=== PATIENT | female | born 1945 | race Caucasian/White ===

== ENCOUNTER → 2016-09-20 | Day surgery (SDC) | payer MEDICARE, OTHER ==
[~2016-09-20] VITALS: Ht 162.6 cm; Wt 74.1 kg
[~2016-09-20] MED LIST: *MEPERIDINE 25 MG INJ VIAL PERIprocedural Use ONLY ONE; ACETAMINOPHEN 1000 MG/100 ML VIAL IV ONE; ACETAMINOPHEN/HYDROcodone 325 MG/5 MG TAB PO PRN; BELLADONNA ALKALOIDS/OPIUM 60 MG SUPP RECTAL PRN; CIPROFLOXACIN/DEXT 400 MG/200 ML IV SCH; FAMOTIDINE 20 MG/2 ML VIAL IV ONE; HYDR-3534 PO; INSULIN HUMAN REGULAR 1,000 UNITS/10 ML VIAL SQ PRN; IOHEXOL 350 MG/ML 100 ML BTL (for RAD DIAG) OTHER ONE; LACTATED RINGER'S 1000 ML IV SCH; METOPROLOL TARTRATE 25 MG TAB PO PRN; MIDAZOLAM HCL 2 MG/2 ML VIAL ONE; MORPHINE SULFATE 4 MG/ML INJ IV PRN; ONDANSETRON HCL 4 MG/2 ML VIAL IV PUSH ONE; ONDANSETRON HCL 4 MG/2 ML VIAL IV PUSH PRN; PROPOFOL 200 MG/20 ML AMP IV ONE; SODIUM CHLORID 0.9% 500 ML IV SCH
[2016-09-20 07:38] VITALS: BP 119/77; PULSE 76; RESP 18; TEMP 98.6; O2SAT 96
--- NOTE | 2016-09-20 09:57 | PD.OP ---
Operative Report Date of Surgery: Sep 20, 2016 Preoperative Diagnosis: Stage IV Endometrial Cancer with right hydro and retained right ureteral stent Postoperative Diagnosis: Same Procedure: Cystoscopy; Right Retrograde Study Anesthesia: General LMA Surgeon: Wolfgang West Tank Car Loader(s): None Resident Surgeon: None Operation and Findings: 71-year-old female with history of stage IV endometrial cancer with history of right hydronephrosis and obstruction due to tumor compression. Patient with history of right ureteral stent placed back in May 2016 and is here to undergo cystoscopy with right double-J stent change. Risk and benefits were discussed preoperatively and she was willing to proceed. Patient was brought to operating room identify myself as Karan Mosquera. She was placed in dorsal lithotomy position, prepped and draped in usual sterile fashion, received preprocedure antibiotics, and general LMA anesthesia was administered. 22 Wallisian cystoscope was inserted in the bladder. Alfaro cystoscopy demonstrated what appeared to be tumor growth near the area of the trigone with bullous edema around the right ureteral orifice with the right double-J stent in place. An alligator grasper was then used to pull the stent out to the urethral meatus and a 0.35 sensor wire was then passed through the stent. 5 Wallisian opening catheter was then slid over the wire and a retrograde study was performed. Contrast was noted to drain from the ureter but contrast within the collecting system was not draining promptly. Decision was then made to change out the stent and a new 22 cm 6 Wallisian right double-J stent was placed with a good curl in the kidney and a good curl in the bladder. The bladder was evacuated and she was transferred to recovery stable condition. She will obtain a CAT scan next Saturday to evaluate the disease process and she'll follow -up in the clinic after that. Wolfgang West DO Sep 20, 2016 09:57
[2016-09-20 11:05] VITALS: BP 106/66; PULSE 71; RESP 20; TEMP 97.5; O2SAT 95
--- NOTE | 2016-09-20 14:33 | EKG ---
Date Performed: 09/20/2016 Time Performed: 07:25:49 PTAGE: 71 years EKG: Sinus rhythm PATTERN CONSISTENT WITH PULMONARY DISEASE LEFT ANTERIOR FASCICULAR BLOCK ABNORMAL ECG Compared to pr ior tracing no significant change PREVIOUS TRACING : 08/19/2015 15.52 DOCTOR: Javad Zhang Interpretating Date/Time 09/20/2016 14:32:40
== END | disposition home or self-care (01) ==
LOC: HEND 06:47
PROVIDERS: ATTEND Urology
DX: N13.30 Unspecified hydronephrosis (principal); C54.1 Malignant neoplasm of endometrium; R94.31 Abnormal electrocardiogram [ECG] [EKG]
CPT/HCPCS: 00910; 52332; 74420; 93005; C1769; J0131; J0744; J2175; J2250; J2405; J7120; Q9967; J3010

== ENCOUNTER 2016-11-10 16:48 | Emergency (ER) | payer MEDICARE, MEDICAID ==
[~2016-11-10] VITALS: Ht 162.6 cm; Wt 74.0 kg
[2016-11-10 17:02] VITALS: BP 141/79; PULSE 89; RESP 16; TEMP 98.9; O2SAT 97
[2016-11-10] MEDS ORDERED: SODIUM CHLORIDE 0.9% FLUSH 10 ML FLUSH IV FLUSH PRN (17:15)
[2016-11-10 17:20] VITALS: BP 136/75; PULSE 81; RESP 16; O2SAT 97
--- NOTE | 2016-11-10 17:23 | PD ---
HPI Chief Complaint: Pain: Acute or Chronic Time Seen by Provider: 17:15 Travel History International Travel<30 days: No Contact w/Intl Traveler<30days: No Traveled to known affect area: No History of Present Illness HPI 71 year old female presents to the emergency department for evaluation of increasing abdominal pain over the past three days. She has history of stage IV uterine papillary serous carcinoma, oncologist is Dr. Horn. Patient states that she was on Neulasta previously and was concerned of possible splenic rupture which could be a side effect of Neulasta. She states she wound up going back on it and recently stopped it approximately 2 weeks ago. She states that she has had worsening left upper quadrant pain. However, she states it will traveled throughout the abdomen. She also reports increased shortness of breath that started 3 days ago. She denies any chest pain. No fevers. She is currently on chemotherapy, last chemotherapy was 5 weeks ago. She states she has no other medical problems and takes no prescribed medications. According to the chart, when I looked at previous imaging, she did have bilateral pulmonary embolisms back in 2015. She is not currently on any anticoagulants. Patient states that she does not typically have much pain associated with her cancer. Patient is concerned of possible splenic rupture. Patient does report chronic swelling of the right lower extremity, but not the left extremity PFSH Past Medical History Arthritis: No Heart Rhythm Problems: No Cancer: Yes (ENDOMETRIAL ) Cardiovascular Problems: No High Cholesterol: No Chemotherapy: Yes Cerebrovascular Accident: No Diabetes: No Diminished Hearing: No Endocrine: No Genitourinary: Yes (right ureter obst, STENT PAIN WITH AMBULATION) Hepatitis: Yes (HEPATITIS B) Hiatal Hernia: No Immune Disorder: No Musculoskeletal: Yes (HERNIATED DISCS, RT NECK/SHOULDER PAIN) Neurologic: No Psychiatric: No Reproductive: Yes (ENDOMETRIAL TUMOR) Respiratory: No Immunizations Current: Yes Migraines: No Seizures: No Thyroid Disease: No ?: Not Menopausal: Yes : 3 Para: 1 Miscarriage: 0 : 2 Past Surgical History AICD: No Body Medical Devices: RIGHT CHEST PORT Cardiac Surgery: No Section: Yes (X 1) Ear Surgery: No Endocrine Surgery: No Eye Surgery: No Genitourinary Surgery: Yes (R NEPHROSTOMY ) Gynecologic Surgery: Yes (C SECTION. BENIGN TUMOR REMOVED FROM LEFT BREAST) Joint Replacement: No Oral Surgery: Yes (TONSILLECTOMY) Pacemaker: No Thoracic Surgery: No Tonsillectomy: Yes Other Surgery: Yes (RHINOPLASTY) Social History Alcohol Use: No Tobacco Use: No Substance Use: No Allergies-Medications (Allergen,Severity, Reaction): Coded Allergies: Latex (Verified Allergy, Severe, hives, 11/10/16) Penicillin (Verified Allergy, Severe, Anaphylaxis, 11/10/16) Pentothal (Verified Allergy, Severe, SODIUM PENTOTHAL; COULDN'T WAKE UP, ) Reported Meds & Prescriptions Reported Meds & Active Scripts Active No Active Prescriptions or Reported Medications Review of Systems Except as stated in HPI: all other systems reviewed are Neg Physical Exam Narrative GENERAL: Well-nourished, well-developed female patient, afebrile. SKIN: Focused skin assessment warm/dry. HEAD: Normocephalic. Atraumatic. EYES: No scleral icterus. No injection or drainage. NECK: Supple, trachea midline. No JVD or lymphadenopathy. CARDIOVASCULAR: Regular rate and rhythm without murmurs, gallops, or rubs. RESPIRATORY: Breath sounds equal bilaterally. No accessory muscle use. Lungs sounds are clear to auscultation. GASTROINTESTINAL: Abdomen soft and nondistended. Patient has diffuse tenderness throughout the abdomen. MUSCULOSKELETAL: No cyanosis. Patient has 2+ lower extremity edema to the right lower extremity. BACK: Nontender without obvious deformity. No CVA tenderness. Data Data Last Documented VS Vital Signs Date Time Temp Pulse Resp B/P Pulse Ox O2 Delivery O2 Flow Rate FiO2 11/10/16 18:50 87 24 117/78 96 Room Air 11/10/16 17:02 98.9 Orders Complete Blood Count With Diff (11/10/16 17:11) Comprehensive Metabolic Panel (11/10/16 17:) Lipase (11/10/16 17:11) Prothrombin Time / Inr (Pt) (11/10/16:) Act Partial Throm Time (Ptt) (11/10/16 17:11) Urinalysis - C+S If Indicated (11/10/16 17:11) Ct Abd/Pel W Iv Contrast(Rout) (11/10/16 17:11) Iv Access Insert/Monitor (11/10/16 17:11) Ecg Monitoring (11/10/16 17:11) Oximetry (5/13/17 17:11) Sodium Chloride 0.9% Flush (Ns Flush) (11/10/16 17:15) Electrocardiogram (11/10/16 17:11) Creatine Kinase (Cpk) (11/10/16 17:11) Troponin I (11/10/16 17:11) Ct Pulmonary Angiogram (11/10/16 ) Us Leg Venous Doppler (11/10/16 ) Iohexol 350 Inj (Omnipaque 350 Inj) (11/10/16 19:38) Labs Laboratory Tests Test 11/10/16 11/10/16 17:18 17:39 White Blood Count 4.5 TH/MM3 Red Blood Count 3.77 MIL/MM3 Hemoglobin 12.2 GM/DL Hematocrit 35.6 % Mean Corpuscular Volume 94.3 FL Mean Corpuscular Hemoglobin 32.3 PG Mean Corpuscular Hemoglobin 34.3 % Concent Red Cell Distribution Width 16.2 % Platelet Count 104 TH/MM3 Mean Platelet Volume 7.5 FL Neutrophils (%) (Auto) 69.2 % Lymphocytes (%) (Auto) 18.9 % Monocytes (%) (Auto) 10.9 % Eosinophils (%) (Auto) 0.4 % Basophils (%) (Auto) 0.6 % Neutrophils # (Auto) 3.1 TH/MM3 Lymphocytes # (Auto) 0.9 TH/MM3 Monocytes # (Auto) 0.5 TH/MM3 Eosinophils # (Auto) 0.0 TH/MM3 Basophils # (Auto) 0.0 TH/MM3 CBC Comment DIFF FINAL Differential Comment Prothrombin Time 10.8 SEC Prothromb Time International 1.0 RATIO Ratio Activated Partial 27.7 SEC Thromboplast Time Sodium Level 140 MEQ/L Potassium Level 3.9 MEQ/L Chloride Level 105 MEQ/L Carbon Dioxide Level 26.4 MEQ/L Anion Gap 9 MEQ/L Blood Urea Nitrogen 9 MG/DL Creatinine 0.81 MG/DL Estimat Glomerular Filtration 70 ML/MIN Rate Random Glucose 84 MG/DL Calcium Level 9.1 MG/DL Total Bilirubin 0.5 MG/DL Aspartate Amino Transf 21 U/L (AST/SGOT) Alanine Aminotransferase 23 U/L (ALT/SGPT) Alkaline Phosphatase 55 U/L Total Creatine Kinase 164 U/L Troponin I LESS THAN 0.02 NG/ML Total Protein 7.1 GM/DL Albumin 3.7 GM/DL Lipase 89 U/L Urine Color LIGHT-YELLOW Urine Turbidity CLEAR Urine pH 5.0 Urine Specific Edwards 1.008 Urine Protein TRACE mg/dL Urine Glucose (UA) NEG mg/dL Urine Ketones 40 mg/dL Urine Occult Blood SMALL Urine Nitrite NEG Urine Bilirubin NEG Urine Urobilinogen LESS THAN 2.0 MG/DL Urine Leukocyte Esterase MOD Urine RBC 4 /hpf Urine WBC 5 /hpf Urine Squamous Epithelial <1 /hpf Cells Urine Mucus FEW /lpf Microscopic Urinalysis Comment CULT NOT INDICATED MDM Medical Decision Making Medical Screen Exam Complete: Yes Emergency Medical Condition: Yes Medical Record Reviewed: Yes Interpretation(s) US venous doppler of the right lower extremity - CONCLUSION: No evidence of deep venous thrombosis within the right lower extremity. CTPA - CONCLUSION: 1. No evidence of pulmonary embolism. 2. Calcified granulomas within both lungs as well as calcified hilar lymph nodes bilaterally. 3. Degenerative changes and mild scoliosis of the thoracic spine. CT abdomen/pelvis - CONCLUSION: 1. Interval development of uretero pelvocaliectasis on the left without definite calcified obstructing calculus identified within the left distal ureter. 2. Internal ureteral stent is noted on the right with some residual uretero pelvocaliectasis noted on the right. 3. Enlarged uterus with thickened endometrium consistent with patient's known endometrial carcinoma. 4. Apparent thickening of the posterior wall of the urinary bladder which is indeterminate. Cystoscopy would be helpful to rule out bladder wall neoplasm, if clinically indicated. 5. Uncomplicated colonic diverticulosis. 6. Degenerative changes throughout the lumbar spine. Differential Diagnosis Endometrial cancer versus DVT versus PE versus diverticulitis versus splenic injury Narrative Course 71-year-old female who is currently on chemotherapy for endometrial cancer presents to the emergency department for evaluation of shortness of breath and abdominal pain that has been worsening over the past 3 days. She also has unilateral swelling to the right lower extremity. EKG, CBC, CMP, lipase, CK, troponin, PT, PTT/INR, UA are ordered and pending. CT of the abdomen/pelvis with IV contrast and CT pulmonary angiogram are ordered and pending. Ultrasound of the right leg venous Doppler is ordered and pending. Patient declines pain medication at this time. EKG shows sinus rhythm, heart rate 78, no acute ST changes. CBC shows no acute abnormality. CMP shows no acute abnormality. Lipase is 89. CK is 164. Troponin is less than 0.02. Coags are unremarkable. UA shows moderate leukocyte esterase, 4 RBC, [address] abdomen/pelvis shows interval development of uretero pelvocaliectasis on the left without definite calcified obstructing calculus identified within the left distal ureter; internal ureteral stent is noted on the right with some residual uretero pelvocaliectasis noted on the right; enlarged uterus with thickened endometrium consistent with patient's known endometrial carcinoma; apparent thickening of the posterior wall of the urinary bladder which is indeterminate; Cystoscopy would be helpful to rule out bladder wall neoplasm, if clinically indicated; uncomplicated colonic diverticulosis; degenerative changes throughout the lumbar spine. CT pulmonary angiogram shows no evidence of pulmonary embolism; calcified granulomas within both lungs as well as calcified hilar lymph nodes bilaterally; generative changes and mild scoliosis of the thoracic spine. US right leg is negative for DVT. I discussed the results and imaging results with my attending physician, Dr. Smith. We reviewed the imaging and compared with previous imaging. Dr. Smith believes the patient is stable for outpatient follow-up. Discussed with the patient who verbalizes agreement. I gave the patient a copy of the CT report. The patient will be discharged short-term prescription for Lortab for pain. I instructed her to call on Saturday to Dr. Horn and her urologist, Dr. West, notified them of the imaging results. She verbalizes agreement. The patient was discharged in stable condition with instructions, including return instructions and follow up instructions. Diagnosis Primary Impression: Pelvicaliectasis Additional Impression: Abdominal pain Qualified Code: R10.12 - Left upper quadrant pain Referrals: Ami Horn MD 2 days Wolfgang West DO 2 days Patient Instructions: Abdominal Pain (ED), General Instructions, Narcotic given in the ED Additional Instructions: Follow up with Dr. West and Dr. Horn. Return to the emergency department for any acute, worsening of symptoms. Med/Other Pt SpecificInfo: Prescription(s) given Scripts Hydrocodone-Acetaminophen (Lortab)7.5-325 Mg Tab1 Tab PO Q6H PRN (PAIN) #20 TAB Ref 0 Prov:Brent Wahl MD 11/10/16 Disposition: 01 DISCHARGE HOME Condition: Stable Zuhair,Maira GARCIA November 10, 2016 17:23
[2016-11-10 17:32] LABS: AUTOMATED NEUTROPHIL # 3.1 TH/MM3 (1.8-7.7); BASOPHIL % 0.6 % (0.0-2.0); EOSINOPHIL % 0.4 % (0.0-4.0); HEMATOCRIT 35.6 % (35.0-46.0); HEMO FLAGS DIFF FINAL; LYMPH % 18.9 % (9.0-44.0); LYMPHOCYTE # 0.9 TH/MM3 (1.0-4.8); MEAN CELL VOLUME 94.3 FL (80.0-100.0); MEAN CORPUSCULAR HEMOGLOBIN 32.3 PG (27.0-34.0); MEAN CORPUSCULAR HGB CONC 34.3 % (32.0-36.0); MONO % 10.9 % (0.0-8.0); NEUT % 69.2 % (16.0-70.0); PLATELET COUNT 104 TH/MM3 (150-450); RED BLOOD COUNT 3.77 MIL/MM3 (4.00-5.30); RED CELL DISTRIBUTION WIDTH 16.2 % (11.6-17.2); WHITE BLOOD COUNT 4.5 TH/MM3 (4.0-11.0)
[2016-11-10 17:46] LABS: APTT (PATIENT) 27.7 SEC (24.3-30.1); PROTHROMBIN TIME - PATIENT 10.8 SEC (9.8-11.6)
[2016-11-10 17:59] LABS: ALT (GPT) 23 U/L (10-53); ANION GAP 9 MEQ/L (5-15); AST (GOT) 21 U/L (15-37); BICARBONATE 26.4 MEQ/L (21.0-32.0); BLOOD UREA NITROGEN 9 MG/DL (7-18); CHLORIDE 105 MEQ/L (98-107); GLOMERULAR FILTRATION RATE 70 ML/MIN (>89); POTASSIUM 3.9 MEQ/L (3.5-5.1); SODIUM (NA) 140 MEQ/L (136-145)
[2016-11-10 18:10] LABS: BLOOD, URINE SMALL (NEG); GLUCOSE,URINE NEG (NEG); KETONE, URINE 40 mg/dL (NEG); MUCUS URINE FEW /lpf (OCC); NITRITE,URINE NEG (NEG); URINE COLOR LIGHT-YELLOW (YELLW/STRAW)
[2016-11-10 18:11] LABS: COMMENT (UR) CULT NOT INDICATED; CULTURE IF INDICATED CULT NOT INDICATED; SQUAMOUS EPITHELIAL CELL URINE <1 /hpf (0-5)
[2016-11-10 18:14] LABS: ALKALINE PHOSPHATASE 55 U/L (45-117); CREATINE KINASE 164 U/L (26-192); TOTAL BILIRUBIN ADULT 0.5 MG/DL (0.2-1.0)
--- NOTE | 2016-11-10 18:40 | RADRPT ---
EXAM DATE/TIME: 11/10/2016 18:12 [facility] COMPARISON: No previous studies available for comparison. EXTERNAL COMPARISON : [facility], US LEG, RIGHT VENOUS DOPPLER, August 14, 2016 INDICATIONS : Right leg swelling. MEDICAL HISTORY : Hepatitis B. . Endometrial cancer. Renal disease. Herniated discs. Herpes. SURGICAL HISTORY : section. Tonsillectomy. Left breast tumor removal. Right nephrostomy. Rhinoplasty. ENCOUNTER: [facility] ACUITY: >1 year PAIN SCORE: 0/10 LOCATION: Right leg. TECHNIQUE: Venous ultrasound of the leg was performed from the inguinal ligament to the proximal calf. Real-donte e, color Doppler and spectral tracing, compression and augmentation techniques were used. FINDINGS: There is normal compressibility of the deep venous system from the inguinal region to the proximal ca lf. No echogenic clot is seen in the lumen of the common femoral, femoral, popliteal, and posterior tibial veins. There is a normal response of the venous system to proximal and distal augmentation an d respiration. CONCLUSION: No evidence of deep venous thrombosis within the right lower extremity. James Mayorga MD on November 10, 2016 at 18:37 Board Certified Radiologist. This report was verified electronically.
[2016-11-10 18:50] VITALS: BP 117/78; PULSE 87; RESP 24; O2SAT 96
[2016-11-10] MEDS ORDERED: IOHEXOL 350 MG/ML 10 ML VIAL (for RAD DIAG) IV ONE (19:38)
--- NOTE | 2016-11-10 20:06 | RADRPT ---
EXAM DATE/TIME: 11/10/2016 19:31 [facility] COMPARISON: CT PULMONARY ANGIOGRAM, November 13, 2015, 14:33. INDICATIONS : Left upper quadrant pain. Metastatic disease. IV CONTRAST: 100 cc Omnipaque 350 (iohexol) IV ; Cumulative dose for multiple exams. RADIATION DOSE: 5.91 CTDIvol (mGy) MEDICAL HISTORY : Hepatitis B. Uterine cancer. SURGICAL HISTORY : section. Right nephrostomy. ENCOUNTER: Initial ACUITY: 1 day PAIN SCALE: 4/10 LOCATION: Left upper quadrant TECHNIQUE: Volumetric scanning of the chest was performed using a pulmonary embolism protocol MIP images were re constructed. Using automated exposure control and adjustment of the mA and/or kV according to patien t size, radiation dose was kept as low as reasonably achievable to obtain optimal diagnostic quality images. FINDINGS: PULMONARY ARTERIES: No filling defects are seen in the pulmonary arteries through the segmental level. LUNGS: There is no consolidation or pneumothorax . Calcified granulomas are noted bilaterally. No concernin g pulmonary nodule is visualized. PLEURAE: There is no pleural thickening or pleural effusion. MEDIASTINUM: There is good visualization of the great vessels of the middle mediastinum. No evidence of mediastin al or hilar adenopathy/mass. Calcified hilar lymph nodes are noted bilaterally. MUSCULOSKELETAL: Degenerative changes and scoliosis of the thoracic spine are noted. MISCELLANEOUS: The visualized upper abdominal organs demonstrate no acute abnormality. CONCLUSION: 1. No evidence of pulmonary embolism. 2. Calcified granulomas within both lungs as well as calcified hilar lymph nodes bilaterally. 3. Degenerative changes and mild scoliosis of the thoracic spine. James Mayorga MD on November 10, 2016 at 20:00 Board Certified Radiologist. This report was verified electronically.
--- NOTE | 2016-11-10 20:20 | RADRPT ---
EXAM DATE/TIME: 11/10/2016 19:31 [facility] COMPARISON: CT ABDOMEN & PELVIS W CONTRAST, November 09, 2015, 11:37. INDICATIONS : Left upper abdomen pain. IV CONTRAST: 100 cc Omnipaque 350 (iohexol) IV ORAL CONTRAST: No oral contrast ingested. RADIATION DOSE: 12.58 CTDIvol (mGy) MEDICAL HISTORY : Hepatitis B. Uterine cancer SURGICAL HISTORY : Right nephrostomy, right renal stent, caesarian section ENCOUNTER: Initial ACUITY: 1 day PAIN SCALE: 4/10 LOCATION: Left upper quadrant TECHNIQUE: Volumetric scanning of the abdomen and pelvis was performed. Using automated exposure control and ad justment of the mA and/or kV according to patient size, radiation dose was kept as low as reasonably achievable to obtain optimal diagnostic quality images. FINDINGS: The uterus remains significant enlarged and the endometrium is markedly thickened consistent with the patient's known diagnosis of endometrial carcinoma. There has been interval development of uretero pelvocaliectasis on the left with no definite calcified obstructing distal ureteral calculus noted. An internal ureteral stent is noted on the right and appears to be in good position. The liver, sple en, gallbladder, pancreas and adrenal glands are unremarkable. There has been interval resolution of the retroperitoneal lymphadenopathy compared with the previous examination. The abdominal aorta is calcified but is not aneurysmally dilated. Inferior vena cava is normal. There is a retroaortic lef t renal vein. The urinary bladder is incompletely distended and appears to demonstrate some posterio r wall thickening. This finding is indeterminate. If there is clinical concern for bladder neoplasm cystoscopy would be more sensitive in this patient. Uncomplicated colonic diverticulosis is noted. There is no acute diverticulitis. Degenerative changes are noted throughout the lumbar spine. CONCLUSION: 1. Interval development of uretero pelvocaliectasis on the left without definite calcified obstructi ng calculus identified within the left distal ureter. 2. Internal ureteral stent is noted on the right with some residual uretero pelvocaliectasis noted o n the right. 3. Enlarged uterus with thickened endometrium consistent with patient's known endometrial carcinoma. 4. Apparent thickening of the posterior wall of the urinary bladder which is indeterminate. Cystosc opy would be helpful to rule out bladder wall neoplasm, if clinically indicated. 5. Uncomplicated colonic diverticulosis. 6. Degenerative changes throughout the lumbar spine. James Mayorga MD on November 10, 2016 at 20:04 Board Certified Radiologist. This report was verified electronically.
[2016-11-10] MEDS ORDERED: HYDR-3534 PO ×2 (20:46→20:47)
--- NOTE | 2016-11-11 15:16 | EKG ---
Date Performed: 11/10/2016 Time Performed: 17:46:57 PTAGE: 71 years EKG: Sinus rhythm LEFT ANTERIOR FASCICULAR BLOCK Since previous tracing, no significant change noted ABNORMAL ECG PREVIOUS TRACING : 09/20/2016 07.25 DOCTOR: Prudence Dangelo Interpretating Date/Time 11/11/2016 15:15:45
== END 2016-11-10 21:21 | disposition home or self-care (01) ==
LOC: NEPC 16:48
DX: R10.12 Left upper quadrant pain (principal); R94.31 Abnormal electrocardiogram [ECG] [EKG]; C54.1 Malignant neoplasm of endometrium; Z85.42 Personal history of malignant neoplasm of other parts of uterus; Z79.899 Other long term (current) drug therapy; R06.02 Shortness of breath
CPT/HCPCS: 71275; 74177; 80053; 81001; 82550; 83690; 84484; 85025; 85610; 85730; 93005; 93971; 99285; Q9967

== ENCOUNTER 2017-01-24 14:06 | Inpatient (IN) | payer MEDICARE, MEDICAID ==
[~2017-01-24] VITALS: Ht 165.1 cm; Wt 76.1 kg
[2017-01-24 14:33] VITALS: BP 138/80; PULSE 74; RESP 18; TEMP 97.9; O2SAT 98
[2017-01-24 14:43] VITALS: BP 148/86; PULSE 68; RESP 18; O2SAT 96
--- NOTE | 2017-01-24 14:44 | PD ---
HPI Chief Complaint: Abdominal Pain Time Seen by Provider: 14:41 Travel History International Travel<30 days: No Contact w/Intl Traveler<30days: No Traveled to known affect area: No History of Present Illness HPI Patient is a 71-year-old female with late stage uterine cancer with an expanding tumor presents emergency department with left lower quadrant abdominal pain. Patient has a recent history of needing from ostomy tube and ureteral stents placed for obstructive uropathy secondary to her tumor growth. She states that was on the right and now her stance and nephrostomy tubes removed. She states that she has had some radiation of her pain to the left lower back as well. She is followed by Dr. Moreno. She missed her last chemotherapy because she said something was "out of whack". Mild nausea without vomiting no diarrhea no blood in the stool. She received morphine 4 mg IV per EMS in route. She currently denies additional pain medicine. Rates her pain is coming and going and sharp in quality. PFSH Past Medical History Arthritis: No Heart Rhythm Problems: No Cancer: Yes (ENDOMETRIAL ) Cardiovascular Problems: No High Cholesterol: No Chemotherapy: Yes Cerebrovascular Accident: No Diabetes: No Diminished Hearing: No Endocrine: No Genitourinary: Yes (RIGHT URETERAL STENT) Headaches: No Hepatitis: Yes (HEPATITIS B) Hiatal Hernia: No Immune Disorder: No Musculoskeletal: Yes (HERNIATED DISCS, RT NECK/SHOULDER PAIN) Neurologic: No Psychiatric: No Reproductive: Yes (ENDOMETRIAL TUMOR) Respiratory: No Immunizations Current: Yes Migraines: No Seizures: No Thyroid Disease: No Menopausal: Yes : 3 Para: 1 Miscarriage: 0 : 2 Past Surgical History AICD: No Body Medical Devices: RIGHT CHEST PORT Cardiac Surgery: No Section: Yes (X 1) Ear Surgery: No Endocrine Surgery: No Eye Surgery: No Genitourinary Surgery: Yes (R NEPHROSTOMY ) Gynecologic Surgery: Yes (C SECTION. BENIGN TUMOR REMOVED FROM LEFT BREAST) Joint Replacement: No Oral Surgery: Yes (TONSILLECTOMY) Pacemaker: No Thoracic Surgery: No Tonsillectomy: Yes Other Surgery: Yes (RHINOPLASTY) Social History Alcohol Use: No Tobacco Use: No Substance Use: No Allergies-Medications (Allergen,Severity, Reaction): Coded Allergies: Latex (Verified Allergy, Severe, hives, 01/24/17) Penicillin (Verified Allergy, Severe, Anaphylaxis, 01/24/17) Pentothal (Verified Allergy, Severe, SODIUM PENTOTHAL; COULDN'T WAKE UP, ) Reported Meds & Prescriptions Reported Meds & Active Scripts Active No Active Prescriptions or Reported Medications Review of Systems Except as stated in HPI: all other systems reviewed are Neg Physical Exam Narrative GENERAL: Well-developed well-nourished, pale, all discomfort. SKIN: Focused skin assessment warm/dry. HEAD: Atraumatic. Normocephalic. EYES: Pupils equal and round. No scleral icterus. No injection or drainage. ENT: No nasal bleeding or discharge. Mucous membranes pink and moist. NECK: Trachea midline. No JVD. CARDIOVASCULAR: Regular rate and rhythm. No murmur appreciated. RESPIRATORY: No accessory muscle use. Clear to auscultation. Breath sounds equal bilaterally. GASTROINTESTINAL: Abdomen soft, non-tender, nondistended. Hepatic and splenic margins not palpable. No CVA tenderness no rebound no percussive tenderness. MUSCULOSKELETAL: No obvious deformities. No clubbing. No cyanosis. No edema. NEUROLOGICAL: Awake and alert. No obvious cranial nerve deficits. Motor grossly within normal limits. Normal speech. PSYCHIATRIC: Appropriate mood and affect; insight and judgment normal. Data Data Last Documented VS Vital Signs Date Time Temp Pulse Resp B/P Pulse Ox O2 Delivery O2 Flow Rate FiO2 01/24/17 17:57 70 18 142/79 100 Room Air 01/24/17 14:33 97.9 Orders Complete Blood Count With Diff (01/24/17 14:41) Comprehensive Metabolic Panel (01/24/17 14:41) Lipase (01/24/17 14:41) Prothrombin Time / Inr (Pt) (01/24/17 14:41) Act Partial Throm Time (Ptt) (01/24/17 14:41) Ct Abd/Pel W Iv Contrast(Rout) (01/24/17 14:41) Iv Access Insert/Monitor (01/24/17 14:41) Ecg Monitoring (01/24/17 14:41) Oximetry (01/24/17 14:41) Sodium Chloride 0.9% Flush (Ns Flush) (01/24/17 14:45) Hydromorphone Pf Inj (Dilaudid Pf Inj) (01/24/17 15:00) Iohexol 350 Inj (Omnipaque 350 Inj) (01/24/17 15:59) Invasive Rad Dept Consult (01/24/17 ) Consult Urology (01/24/17 ) (Hub Use Only)Inp Phy Cons/Ref (01/24/17 ) Admit Order (Ed Use Only) (01/24/17 ) Labs Laboratory Tests Test 01/24/17 14:50 White Blood Count 6.2 TH/MM3 Red Blood Count 3.33 MIL/MM3 Hemoglobin 11.0 GM/DL Hematocrit 32.7 % Mean Corpuscular Volume 98.4 FL Mean Corpuscular Hemoglobin 32.9 PG Mean Corpuscular Hemoglobin 33.5 % Concent Red Cell Distribution Width 16.9 % Platelet Count 152 TH/MM3 Mean Platelet Volume 6.7 FL Neutrophils (%) (Auto) 82.4 % Lymphocytes (%) (Auto) 10.9 % Monocytes (%) (Auto) 5.8 % Eosinophils (%) (Auto) 0.3 % Basophils (%) (Auto) 0.6 % Neutrophils # (Auto) 5.1 TH/MM3 Lymphocytes # (Auto) 0.7 TH/MM3 Monocytes # (Auto) 0.4 TH/MM3 Eosinophils # (Auto) 0.0 TH/MM3 Basophils # (Auto) 0.0 TH/MM3 CBC Comment DIFF FINAL Differential Comment Prothrombin Time 10.6 SEC Prothromb Time International 1.0 RATIO Ratio Activated Partial 25.4 SEC Thromboplast Time Sodium Level 142 MEQ/L Potassium Level 4.1 MEQ/L Chloride Level 108 MEQ/L Carbon Dioxide Level 26.1 MEQ/L Anion Gap 8 MEQ/L Blood Urea Nitrogen 20 MG/DL Creatinine 1.08 MG/DL Estimat Glomerular Filtration 50 ML/MIN Rate Random Glucose 100 MG/DL Calcium Level 8.8 MG/DL Total Bilirubin 0.4 MG/DL Aspartate Amino Transf 18 U/L (AST/SGOT) Alanine Aminotransferase 14 U/L (ALT/SGPT) Alkaline Phosphatase 62 U/L Total Protein 6.6 GM/DL Albumin 3.4 GM/DL Lipase 94 U/L [facility] Medical Decision Making Medical Screen Exam Complete: Yes Emergency Medical Condition: Yes Differential Diagnosis Obstructive uropathy, enlarging tumors, acute kidney injury, acute on chronic abdominal pain. Narrative Course Patient roomed in the emergency department, was given Dilaudid on arrival after receiving morphine in route. CAT scan does confirm that she has acute obstructive left-sided uropathy: Last 24 hours Impressions Abdomen/Pelvis CT 01/24/17 1441 Signed Impressions: Service Date/Time: December 15:55 - CONCLUSION: 1. Acute obstructive uropathy of the left distal ureter likely secondary to irregular bladder wall mass along the left lateral wall resulting in moderate to severe ureteropelvicaliectasis and delayed nephrogram on the left. Cystoscopy may be helpful for to confirm bladder wall mass in this patient if not already performed. 2. Stable enlarged uterus and endometrium consistent with the patient's known endometrial carcinoma. 3. New left debby pelvic mass measuring 5.8 x 4.7 cm consistent with enlarged left ovary or new lymphadenopathy. 4. Uncomplicated colonic diverticulosis. 5. Minimal ascites. 6. Mild to moderate right hydronephrosis which is stable compared to the previous examination. 7. Degenerative changes involving the lumbar and lower thoracic spine. James Mayorga MD Creatinine is normal. The patient was discussed with urology on-call and the patient was discovered to be followed by Dr. West who will make additional recommendations. May ultimately need nephrostomy tube and consultation was placed priority the morning. Patient was discussed with Dr. Pineda for admission is agreeable. Diagnosis Primary Impression: Obstructive uropathy Admitting Information Admitting Physician Requests: Admit Scripts No Active Prescriptions or Reported Meds Condition: Stable James Arenas MD Jan 24, 2017 14:44
[2017-01-24 14:45] VITALS: RESP 20; O2SAT 97
[2017-01-24] MEDS ORDERED: SODIUM CHLORIDE 0.9% FLUSH 10 ML FLUSH IV FLUSH PRN (14:45)
[2017-01-24] MEDS ORDERED: HYDROmorphone HCL PF 1 MG/ML VIAL IV PUSH ONE (15:00)
[2017-01-24 15:22] LABS: AUTOMATED NEUTROPHIL # 5.1 TH/MM3 (1.8-7.7); BASOPHIL % 0.6 % (0.0-2.0); EOSINOPHIL % 0.3 % (0.0-4.0); HEMATOCRIT 32.7 % (35.0-46.0); HEMO FLAGS DIFF FINAL; LYMPH % 10.9 % (9.0-44.0); LYMPHOCYTE # 0.7 TH/MM3 (1.0-4.8); MEAN CELL VOLUME 98.4 FL (80.0-100.0); MEAN CORPUSCULAR HEMOGLOBIN 32.9 PG (27.0-34.0); MEAN CORPUSCULAR HGB CONC 33.5 % (32.0-36.0); MONO % 5.8 % (0.0-8.0); NEUT % 82.4 % (16.0-70.0); PLATELET COUNT 152 TH/MM3 (150-450); RED BLOOD COUNT 3.33 MIL/MM3 (4.00-5.30); RED CELL DISTRIBUTION WIDTH 16.9 % (11.6-17.2); WHITE BLOOD COUNT 6.2 TH/MM3 (4.0-11.0)
[2017-01-24 15:30] LABS: APTT (PATIENT) 25.4 SEC (24.3-30.1); PROTHROMBIN TIME - PATIENT 10.6 SEC (9.8-11.6)
[2017-01-24 15:33] LABS: ANION GAP 8 MEQ/L (5-15); AST (GOT) 18 U/L (15-37); BICARBONATE 26.1 MEQ/L (21.0-32.0); BLOOD UREA NITROGEN 20 MG/DL (7-18); CHLORIDE 108 MEQ/L (98-107); GLOMERULAR FILTRATION RATE 50 ML/MIN (>89); POTASSIUM 4.1 MEQ/L (3.5-5.1); SODIUM (NA) 142 MEQ/L (136-145)
[2017-01-24 15:37] LABS: ALKALINE PHOSPHATASE 62 U/L (45-117); ALT (GPT) 14 U/L (10-53); TOTAL BILIRUBIN ADULT 0.4 MG/DL (0.2-1.0)
[2017-01-24] MEDS ORDERED: IOHEXOL 350 MG/ML 10 ML VIAL (for RAD DIAG) IV ONE (15:59)
--- NOTE | 2017-01-24 16:39 | RADRPT ---
EXAM DATE/TIME: 01/24/2017 15:55 [facility] COMPARISON: CT ABDOMEN & PELVIS W CONTRAST, November 10, 2016, 19:31. INDICATIONS : Abdomen pain on left side for three days. IV CONTRAST: 75 cc Omnipaque 350 (iohexol) IV ORAL CONTRAST: No oral contrast ingested. RADIATION DOSE: 10.45 CTDIvol (mGy) MEDICAL HISTORY : Hepatitis B. Endometrial cancer for one year. SURGICAL HISTORY : Prior right ureteral stent ENCOUNTER: Initial ACUITY: 3 days PAIN SCALE: 6/10 LOCATION: Left upper quadrant TECHNIQUE: Volumetric scanning of the abdomen and pelvis was performed. Using automated exposure control and ad justment of the mA and/or kV according to patient size, radiation dose was kept as low as reasonably achievable to obtain optimal diagnostic quality images. DICOM format image data is available electro nically for review and comparison. FINDINGS: There is acute obstructive uropathy of the left distal ureter with moderate to severe ureteral pelvic aliectasis on the left and delayed nephrogram on the left which likely is related to the irregular ma ss involving the left urinary bladder sidewall. No calcified obstructing calculus is identified. Cy stoscopy is recommended to confirm urinary bladder wall mass if not already performed. The uterus re silvia markedly enlarged and the endometrium is prominent consistent with known endometrial carcinoma. There is new soft tissue mass-like lesion within the left hemipelvis measuring 5.8 x 4.7 cm consiste nt with enlarged left ovary or possible new lymphadenopathy. Uncomplicated colonic diverticulosis is noted. No acute diverticulitis is noted. There is some ascites within the abdomen and pelvis. The liver is mildly prominent but demonstrates no focal mass. No biliary ductal dilatation is noted. Th e gallbladder is unremarkable. The spleen is stable. The pancreas is normal. The adrenal glands ar e normal bilaterally. There is a retroaortic left renal vein. The abdominal aorta and inferior vena cava are unremarkable. Mild ureteropelvicaliectasis is noted on the right and is stable compared to the previous examination. There is a calcified granuloma within the left posterior lung base. Degen erative changes are noted throughout the lumbar and lower thoracic spine. CONCLUSION: 1. Acute obstructive uropathy of the left distal ureter likely secondary to irregular bladder wall ma ss along the left lateral wall resulting in moderate to severe ureteropelvicaliectasis and delayed ne phrogram on the left. Cystoscopy may be helpful for to confirm bladder wall mass in this patient if n ot already performed. 2. Stable enlarged uterus and endometrium consistent with the patient's known endometrial carcinoma. 3. New left debby pelvic mass measuring 5.8 x 4.7 cm consistent with enlarged left ovary or new lympha denopathy. 4. Uncomplicated colonic diverticulosis. 5. Minimal ascites. 6. Mild to moderate right hydronephrosis which is stable compared to the previous examination. 7. Degenerative changes involving the lumbar and lower thoracic spine. James Mayorga MD on January 24, 2017 at 16:16 Board Certified Radiologist. This report was verified electronically.
[2017-01-24 17:57] VITALS: BP 142/79; PULSE 70; RESP 18; O2SAT 100
[2017-01-24] MEDS ORDERED: ACETAMINOPHEN/HYDROcodone 325 MG/5 MG TAB PO PRN (19:00)
[2017-01-24] MEDS ORDERED: NALOXONE HCL 0.4 MG/ML AMP IV PRN (19:00)
[2017-01-24] MEDS ORDERED: MORPHINE SULFATE 4 MG/ML INJ IV PRN (19:00)
[2017-01-24] MEDS ORDERED: ACETAMINOPHEN 325 MG TAB PO PRN (19:00)
[2017-01-24] MEDS ORDERED: ACETAMINOPHEN/HYDROcodone 325 MG/10 MG TAB PO PRN (19:00)
[2017-01-24 19:05] VITALS: BP 157/78; PULSE 69; RESP 18; O2SAT 97
--- NOTE | 2017-01-24 20:26 | HHI.PR ---
Subjective Patient symptoms today Patient with pelvic mass, ureteral obstruction. She has had stents and nephrostomy tubes in the past. Had discussion with the patient regarding her current clinical status. At this time the patient is comfortable, normal Cr, mild flank and abdominal pain. No acute intervention indicated at this time. She has been followed closely by Dr. West for her ureteral obstruction. Please contact Dr. West for further evaluation and treatment recommendations. Objective Vital Signs Vital Signs Date Time Temp Pulse Resp B/P Pulse Ox O2 Delivery O2 Flow Rate FiO2 01/24/17 19:07 18 01/24/17 19:05 69 18 157/78 97 Room Air 01/24/17 17:57 70 18 142/79 100 Room Air 01/24/17 14:45 20 97 Room Air 01/24/17 14:43 68 18 148/86 96 Room Air 01/24/17 14:43 20 01/24/17 14:33 97.9 74 18 138/80 98 Result Diagram: 01/24/17 1450 01/24/17 1450 Imaging Last 24 hours Impressions Abdomen/Pelvis CT 01/24/17 1441 Signed Impressions: Service Date/Time: December 15:55 - CONCLUSION: 1. Acute obstructive uropathy of the left distal ureter likely secondary to irregular bladder wall mass along the left lateral wall resulting in moderate to severe ureteropelvicaliectasis and delayed nephrogram on the left. Cystoscopy may be helpful for to confirm bladder wall mass in this patient if not already performed. 2. Stable enlarged uterus and endometrium consistent with the patient's known endometrial carcinoma. 3. New left debby pelvic mass measuring 5.8 x 4.7 cm consistent with enlarged left ovary or new lymphadenopathy. 4. Uncomplicated colonic diverticulosis. 5. Minimal ascites. 6. Mild to moderate right hydronephrosis which is stable compared to the previous examination. 7. Degenerative changes involving the lumbar and lower thoracic spine. James Mayorga MD Medications and IVs Current Medications Medications (Trade) Dose Ordered Sig/Nancy Route Start Time Stop Time Status Last Admin (NS Flush) 2 ml UNSCH PRN IV FLUSH 01/24/17 19:00 (NS Flush) 2 ml BID IV FLUSH 01/24/17 21:00 (Tylenol) 650 mg Q6H PRN PO 01/24/17 19:00 ([place] 5-325 Mg) 1 tab Q4H PRN PO 01/24/17 19:00 ([place] 10-325 Mg) 1 tab Q4H PRN PO 01/24/17 19:00 (Morphine Inj) 4 mg Q3H PRN IV 01/24/17 19:00 (Narcan Inj) 0.4 mg UNSCH PRN IV 01/24/17 19:00 Bruce Griffith MD Jan 24, 2017 20:26
[2017-01-24] MEDS ORDERED: HYDROmorphone HCL PF 1 MG/ML VIAL IV PUSH PRN (20:30)
[2017-01-24] MEDS: SODIUM CHLORIDE 0.9% FLUSH 10 ML FLUSH IV FLUSH SCH (21:06)
[2017-01-24] MEDS: SODIUM CHLORIDE 0.9% FLUSH 10 ML FLUSH IV FLUSH PRN (23:26)
[2017-01-25 00:01] VITALS: BP 157/82; PULSE 77; RESP 18; TEMP 98; O2SAT 95
--- NOTE | 2017-01-25 00:37 | HHI.HP ---
[facility] No Primary Care Physician Admission Diagnosis Acute Obstructive Uropathy. Diagnoses: (1) Obstructive uropathy (2) Endometrial cancer Chief Complaint: left lower abdominal pain Travel History International Travel<30 Days: No Contact w/Intl Traveler <30 Da: No Traveled to Known Affected Are: No History of Present Illness Written by Mina Fitch, acting as scribe for Dr. Montes on 01/25/17 at 00:37. Left lower sided abdominal pain started 2 days ago and became progressively worse throughout the day - symptoms is severe. Pain has not been relieved with Dilaudid 0.5 mg IV. Denies problems urinating, dysuria, fever - has had hematuria on and off for one year and hematuria was present in a little bit of a greater amount this morning- had a stent that was removed one month ago on right. Reports nausea without vomiting, denies diarrhea. Denies falls, syncope, sob, black or bloody stools. Review of Systems Except as stated in HPI: all other systems reviewed are Neg Past Family Social History Past Medical History Stage IV endometrial Cancer Degenerative Disc Disease Benign breast biopsy Bilateral PE 10/2015 Past Surgical History Right nephrostomy Right ureteral stents Cystoscopy Rhinoplasty Right breast biopsy . Reported Medications Takes no medications at home . Allergies: Coded Allergies: Latex (Verified Allergy, Severe, hives, 01/24/17) Penicillin (Verified Allergy, Severe, Anaphylaxis, 01/24/17) Pentothal (Verified Allergy, Severe, SODIUM PENTOTHAL; COULDN'T WAKE UP, ) Active Ordered Medications Current Medications Sodium Chloride (NS Flush) 2 ml UNSCH PRN IV FLUSH FLUSH AFTER USING IV ACCESS ; Start 01/24/17 at 14:45; Stop 01/24/17 at 19:07; Status DC Hydromorphone HCl (Dilaudid Pf Inj) 1 mg ONCE ONCE IV PUSH Last administered on 01/24/17t 15:19; Start 01/24/17 at 15:00; Stop 01/24/17 at 15:01; Status DC Iohexol (Omnipaque 350 Inj) 75 ml STK-MED ONCE IV Last administered on 15:59; Start 01/24/17 at 15:59; Stop 01/24/17 at 16:00; Status DC Sodium Chloride (NS Flush) 2 ml UNSCH PRN IV FLUSH FLUSH AFTER USING IV ACCESS Last administered on 01/25/17 00:54; Start 01/24/17 at 19:00 Sodium Chloride (NS Flush) 2 ml BID IV FLUSH Last administered on 01/24/17 21: 06; Start 01/24/17 at 21:00 Acetaminophen (Tylenol) 650 mg Q6H PRN PO PAIN SCALE 1 TO 2; Start 01/24/17 at 19:00 Acetaminophen/ Hydrocodone Bitart ([place] 5-325 Mg) 1 tab Q4H PRN PO PAIN SCALE 3 TO 5; Start 01/24/17 at 19:00; Stop 01/24/17 at 20:25; Status DC Acetaminophen/ Hydrocodone Bitart ([place] 10-325 Mg) 1 tab Q4H PRN PO PAIN SCALE 6 TO 10; Start 01/24/17 at 19:00; Stop 01/24/17 at 20:25; Status DC Morphine Sulfate (Morphine Inj) 4 mg Q3H PRN IV BREAKTHROUGH PAIN; Start at 19:00; Stop 01/24/17 at 20:25; Status DC Naloxone HCl (Narcan Inj) 0.4 mg UNSCH PRN IV SEE LABEL COMMENTS; Start at 19:00 Hydromorphone HCl (Dilaudid Pf Inj) 0.5 mg Q2H PRN IV PUSH pain >5 Last administered on 01/24/17 23:26; Start 01/24/17 at 20:30; Stop 01/25/17 at 00:41 ; Status DC Hydromorphone HCl (Dilaudid Pf Inj) 1 mg ONCE ONCE IV PUSH Last administered on 01/25/17 00:53; Start 01/25/17 at 00:45; Stop 01/25/17 at 00:46; Status DC Hydromorphone HCl (Dilaudid Pf Inj) 1 mg Q2HR PRN IV PUSH pain > 5; Start 01/25 at 00:45 Ondansetron HCl (Zofran Inj) 4 mg Q6HR PRN IV PUSH NAUSEA OR VOMITING; Start at 00:45 . Family History Sister with breast cancer, now with widespread metastasis . Social History Tobacco: denies Alcohol: denies Illicit Drugs: denies Physical Exam Vital Signs Vital Signs Date Time Temp Pulse Resp B/P Pulse Ox O2 Delivery O2 Flow Rate FiO2 01/25/17 00:01 98.0 77 18 157/82 95 01/24/17 19:07 18 01/24/17 19:05 69 18 157/78 97 Room Air 01/24/17 17:57 70 18 142/79 100 Room Air 01/24/17 14:45 20 97 Room Air 01/24/17 14:43 68 18 148/86 96 Room Air 01/24/17 14:43 20 01/24/17 14:33 97.9 74 18 138/80 98 Physical Exam GENERAL: This is a very pleasant female patient, complaining of pain unrelieved. SKIN: No rashes, ecchymoses or lesions. Cool and dry. HEAD: Atraumatic. Normocephalic. EYES: No scleral icterus. No injection or drainage. ENT: Nose without bleeding, purulent drainage. NECK: Trachea midline. No JVD. CARDIOVASCULAR: Regular rate and rhythm without murmurs, gallops, or rubs. RESPIRATORY: Clear to auscultation. Breath sounds equal bilaterally. No wheezes , rales, or rhonchi. GASTROINTESTINAL: Abdomen soft, tender, nondistended. No guarding. MUSCULOSKELETAL: Extremities without clubbing, cyanosis, or edema. No calf tenderness. Right extremity larger than left - chronic from tumor compression. NEUROLOGICAL: Awake and alert. Motor and sensory grossly within normal limits. Normal speech. . Laboratory Laboratory Tests Test 01/24/17 14:50 White Blood Count 6.2 Red Blood Count 3.33 Hemoglobin 11.0 Hematocrit 32.7 Mean Corpuscular Volume 98.4 Mean Corpuscular Hemoglobin 32.9 Mean Corpuscular Hemoglobin 33.5 Concent Red Cell Distribution Width 16.9 Platelet Count 152 Mean Platelet Volume 6.7 Neutrophils (%) (Auto) 82.4 Lymphocytes (%) (Auto) 10.9 Monocytes (%) (Auto) 5.8 Eosinophils (%) (Auto) 0.3 Basophils (%) (Auto) 0.6 Neutrophils # (Auto) 5.1 Lymphocytes # (Auto) 0.7 Monocytes # (Auto) 0.4 Eosinophils # (Auto) 0.0 Basophils # (Auto) 0.0 CBC Comment DIFF FINAL Differential Comment Prothrombin Time 10.6 Prothromb Time International 1.0 Ratio Activated Partial 25.4 Thromboplast Time Sodium Level 142 Potassium Level 4.1 Chloride Level 108 Carbon Dioxide Level 26.1 Anion Gap 8 Blood Urea Nitrogen 20 Creatinine 1.08 Estimat Glomerular Filtration 50 Rate Random Glucose 100 Calcium Level 8.8 Total Bilirubin 0.4 Aspartate Amino Transf 18 (AST/SGOT) Alanine Aminotransferase 14 (ALT/SGPT) Alkaline Phosphatase 62 Total Protein 6.6 Albumin 3.4 Lipase 94 Result Diagram: 01/24/17 1450 01/24/17 1450 Imaging Last Impressions Abdomen/Pelvis CT 01/24/17 1441 Signed Impressions: Service Date/Time: , January 24, 2017 15:55 - CONCLUSION: 1. Acute obstructive uropathy of the left distal ureter likely secondary to irregular bladder wall mass along the left lateral wall resulting in moderate to severe ureteropelvicaliectasis and delayed nephrogram on the left. Cystoscopy may be helpful for to confirm bladder wall mass in this patient if not already performed. 2. Stable enlarged uterus and endometrium consistent with the patient's known endometrial carcinoma. 3. New left debby pelvic mass measuring 5.8 x 4.7 cm consistent with enlarged left ovary or new lymphadenopathy. 4. Uncomplicated colonic diverticulosis. 5. Minimal ascites. 6. Mild to moderate right hydronephrosis which is stable compared to the previous examination. 7. Degenerative changes involving the lumbar and lower thoracic spine. James Mayorga MD . Assessment and Plan Problem List: (1) Obstructive uropathy ICD Code: N13.9 Status: Acute (2) Endometrial cancer ICD Code: C54.1 Status: Acute (3) Pelvicaliectasis ICD Code: N28.89 Status: Acute (4) Bladder mass ICD Code: N32.89 Status: Acute Assessment and Plan 71 y/o female with stage IV endometrial cancer with new onset of left lower quadrant abdominal pain: Endometrial cancer Bladder mass Lymphadenopathy - Abdomen/pelvis CT with IV contrast showed acute obstructive uropathy of the left distal ureter likely secondary to irregular bladder wall mass along the left lateral wall resulting in moderate to severe ureteropelvicaliectasis. Stable enlarged uterus and endometrium consistent with the known endometrial carcinoma. New left debby pelvic mass measuring 5.8 x 4.7 cm consistent with enlarged left ovary or new lymphadenopathy. Mild to moderate right hydronephrosis which is stable compared to the previous examination. - Consult urology - Dr. West - assistance appreciated - Consult heel seat trimmer/oncology - Dr. Horn - assistance appreciated - pain management: Dilaudid increased to 1 mg IV q2h PRN pain > 5 - NPO for possible procedure in a.m. - will be based upon Dr. West' evaluation DVT prophylaxis - SCDs/TEDs This note was transcribed by tabitha [Mina Fitch]. I, Dr. Tim Montes personally performed the history, physical exam, and medical decision making; and confirmed the accuracy of the information in the transcribed note. Authenticated by Dr. Tim Montes on 01/25/17 at 00:37. Discussed Condition With Patient and RN . Physician Certification 2 Midnight Certification Type: Admission for Inpatient Services Order for Inpatient Services The services are ordered in accordance with Medicare regulations or non- Medicare payer requirements, as applicable. In the case of services not specified as inpatient-only, they are appropriately provided as inpatient services in accordance with the 2-midnight benchmark. Estimated LOS (days): 3 days is the estimated time the patient will need to remain in the hospital, assuming treatment plan goals are met and no additional complications. Post-Hospital Plan: [place] Mina Fitch Jan 25, 2017 00:37 Tim Montes MD Jan 29, 2017 07:55
[2017-01-25] MEDS ORDERED: HYDROmorphone HCL PF 1 MG/ML VIAL IV PUSH ONE (00:45)
[2017-01-25] MEDS ORDERED: ONDANSETRON HCL 4 MG/2 ML VIAL IV PUSH PRN (00:45)
[2017-01-25] MEDS: SODIUM CHLORIDE 0.9% FLUSH 10 ML FLUSH IV FLUSH PRN ×2 (00:54→04:07)
[2017-01-25 04:00] VITALS: BP 130/67; PULSE 79; RESP 18; TEMP 98; O2SAT 92
[2017-01-25] MEDS: HYDROmorphone HCL PF 1 MG/ML VIAL IV PUSH PRN ×3 (04:06→22:19)
[2017-01-25 07:15] VITALS: PULSE 74
[2017-01-25 08:00] VITALS: BP 137/74; PULSE 73; RESP 16; TEMP 98.1; O2SAT 92
[2017-01-25] MEDS: SODIUM CHLORIDE 0.9% FLUSH 10 ML FLUSH IV FLUSH SCH ×3 (09:11→22:21)
--- NOTE | 2017-01-25 10:13 | HHI.PR ---
Subjective Remarks Patient reports persistent pain however does respond to IV Dilaudid. She states usually she does not take any chronic pain medications at home. She reports she would prefer to discuss her case with Dr. West with all her options prior to pursuing nephrostomy tube. She states that she had a nephrostomy tube last year and was not the best experience. Objective Vitals Vital Signs Date Time Temp Pulse Resp B/P Pulse Ox O2 Delivery O2 Flow Rate FiO2 01/25/17 08:00 98.1 73 16 137/74 92 01/25/17 04:00 98.0 79 18 130/67 92 01/25/17 00:01 98.0 77 18 157/82 95 01/24/17 19:07 18 01/24/17 19:05 69 18 157/78 97 Room Air 01/24/17 17:57 70 18 142/79 100 Room Air 01/24/17 14:45 20 97 Room Air 01/24/17 14:43 68 18 148/86 96 Room Air 01/24/17 14:43 20 01/24/17 14:33 97.9 74 18 138/80 98 Result Diagram: 01/24/17 1450 01/24/17 1450 Objective Remarks GENERAL: This is a well-nourished, well-developed patient, in no apparent distress. CARDIOVASCULAR: Regular rate and rhythm RESPIRATORY: Clear to auscultation. Breath sounds equal bilaterally. No wheezes , rales, or rhonchi. GASTROINTESTINAL: Abdomen soft, non-tender, nondistended. Normal active bowel sounds, left lower quadrant tenderness on palpation with no rebound guarding mild left flank pain. MUSCULOSKELETAL: Extremities without clubbing, cyanosis, or edema. NEURO: Alert & Oriented x4 to person, place, time, situation. Moves all ext x4 A/P Problem List: (1) Obstructive uropathy ICD Code: N13.9 Status: Acute (2) Endometrial cancer ICD Code: C54.1 Status: Acute (3) Pelvicaliectasis ICD Code: N28.89 Status: Acute (4) Bladder mass ICD Code: N32.89 Status: Acute Assessment and Plan 71 y/o female with stage IV endometrial cancer with new onset of left lower quadrant abdominal pain: Endometrial cancercurrently follows with Dr. Bustamante Bladder mass with obstructive uropathy Lymphadenopathy - Abdomen/pelvis CT with IV contrast showed acute obstructive uropathy of the left distal ureter likely secondary to irregular bladder wall mass along the left lateral wall resulting in moderate to severe ureteropelvicaliectasis. Stable enlarged uterus and endometrium consistent with the known endometrial carcinoma. New left debby pelvic mass measuring 5.8 x 4.7 cm consistent with enlarged left ovary or new lymphadenopathy. Mild to moderate right hydronephrosis which is stable compared to the previous examination. - Consult urology - Dr. West - assistance appreciated continue with pain management: Dilaudid increased to 1 mg IV q2h PRN pain > 5 - NPO for possible procedure for nephrostomy tube. - will be based upon Dr. West' evaluation, DVT prophylaxis - SCDs/TEDs, anticoagulation held for possible pending procedure. Discharge Planning Home when cleared by urology Anh Laughlin MD Jan 25, 2017 10:13
[2017-01-25] MEDS ORDERED: ACETAMINOPHEN 325 MG TAB PO PRN (10:15)
[2017-01-25] MEDS ORDERED: NALOXONE HCL 0.4 MG/ML AMP IV PRN (10:15)
--- NOTE | 2017-01-25 11:30 | HHI.PR ---
Subjective Patient symptoms today Pt seen and examined. Pt admitted with left flank pain and nausea. Pt known to me. Objective Vital Signs Vital Signs Date Time Temp Pulse Resp B/P Pulse Ox O2 Delivery O2 Flow Rate FiO2 01/25/17 08:00 98.1 73 16 137/74 92 01/25/17 04:00 98.0 79 18 130/67 92 01/25/17 00:01 98.0 77 18 157/82 95 01/24/17 19:07 18 01/24/17 19:05 69 18 157/78 97 Room Air 01/24/17 17:57 70 18 142/79 100 Room Air 01/24/17 14:45 20 97 Room Air 01/24/17 14:43 68 18 148/86 96 Room Air 01/24/17 14:43 20 01/24/17 14:33 97.9 74 18 138/80 98 Result Diagram: 01/24/17 1450 01/24/17 1450 Imaging Last 24 hours Impressions Abdomen/Pelvis CT 01/24/17 1441 Signed Impressions: Service Date/Time: December 15:55 - CONCLUSION: 1. Acute obstructive uropathy of the left distal ureter likely secondary to irregular bladder wall mass along the left lateral wall resulting in moderate to severe ureteropelvicaliectasis and delayed nephrogram on the left. Cystoscopy may be helpful for to confirm bladder wall mass in this patient if not already performed. 2. Stable enlarged uterus and endometrium consistent with the patient's known endometrial carcinoma. 3. New left debby pelvic mass measuring 5.8 x 4.7 cm consistent with enlarged left ovary or new lymphadenopathy. 4. Uncomplicated colonic diverticulosis. 5. Minimal ascites. 6. Mild to moderate right hydronephrosis which is stable compared to the previous examination. 7. Degenerative changes involving the lumbar and lower thoracic spine. James Mayorga MD Objective Remarks Abd:generalized tenderness on exam, Left CVAT noted Medications and IVs Current Medications Medications (Trade) Dose Ordered Sig/Nancy Route Start Time Stop Time Status Last Admin (NS Flush) 2 ml UNSCH PRN IV FLUSH 01/24/17 19:00 01/25/17 04:07 (NS Flush) 2 ml BID IV FLUSH 01/24/17 21:00 01/25/17 09:11 (Tylenol) 650 mg Q6H PRN PO 01/24/17 19:00 (Narcan Inj) 0.4 mg UNSCH PRN IV 01/24/17 19:00 (Dilaudid Pf Inj) 1 mg Q2HR PRN IV PUSH 01/25/17 00:45 01/25/17 09:11 (Zofran Inj) 4 mg Q6HR PRN IV PUSH 01/25/17 00:45 ([place] 5-325 Mg) 1 tab Q4H PRN PO 01/25/17 10:15 Assessment and Plan Assessment and Plan 71 y.o female with Stage 4 endometrial cancer Recommend left JJ stent insertion in OR today due to symptoms of nausea/left flank pain and enlargement of pelvic mass. Risks and benefits discussed and pt is willing to proceed. Wolfgang West DO Jan 25, 2017 11:30
[2017-01-25 12:00] VITALS: BP 140/79; PULSE 73; RESP 16; TEMP 98.5; O2SAT 93
[2017-01-25] MEDS ORDERED: METHYLENE BLUE 100 MG/10 ML VIAL ONE (12:00)
[2017-01-25] MEDS ORDERED: PROPOFOL 200 MG/20 ML AMP IV ONE (12:00)
[2017-01-25] MEDS ORDERED: FUROSEMIDE 20 MG/2 ML VIAL IV PUSH ONE (12:00)
[2017-01-25] MEDS ORDERED: LACTATED RINGER'S 1000 ML INJ 1,000 ML IV ONE (12:00)
[2017-01-25] MEDS ORDERED: ONDANSETRON HCL 4 MG/2 ML VIAL IV PUSH ONE (12:00)
[2017-01-25] MEDS ORDERED: CIPROFLOXACIN 400 MG PREMIX 200 ML ONE (14:19)
[2017-01-25] MEDS ORDERED: FAMOTIDINE 20 MG/2 ML VIAL ONE (14:25)
[2017-01-25] MEDS ORDERED: MIDAZOLAM HCL 2 MG/2 ML VIAL ONE (14:25)
[2017-01-25] MEDS ORDERED: IOHEXOL 350 MG/ML 100 ML BTL (for RAD DIAG) OTHER ONE (14:56)
--- NOTE | 2017-01-25 15:49 | PD.OP ---
Operative Report Date of Surgery: Jan 25, 2017 Preoperative Diagnosis: Stage IV endometrial carcinoma with moderate left hydronephrosis Postoperative Diagnosis: Same Procedure: Cystoscopy with attempted left stent placement Anesthesia: Gen. LMA Surgeon: Wolfgang West Distance Education Faculty Liaison(s): None Resident Surgeon: None Operation and Findings: 71-year-old female with history of stage IV endometrial cancer. She had bilateral hydronephrosis in the past. One month ago her right ureteral stent was removed and she presented to the emergency room with left-sided flank pain and nausea. CT scan revealed worsening pelvic metastasis and increased adenopathy. Moderate left hydronephrosis was noted and mild right hydronephrosis is also identified. Her creatinine is stable at 1.0. Decision made to bring the patient to the operating room to undergo attempted cystoscopy with left double-J stent insertion. Patient was made aware that due to tumor recurrence, it may be difficult to place a left ureteral stent. She is willing to proceed. Patient is brought to the operating room and identified by myself as Karan Mosquera. She is placed in the dorsal lithotomy position, prepped and draped usual sterile fashion, received preprocedure antibiotics and general LMA anesthesia was administered. 22 Belgian scope was inserted in the bladder and barrera cystoscopy noted a large infiltrating mass along the left area of the bladder encompassing the left ureteral orifice. I was unable to also identify the right ureteral orifice. Methylene blue was then given and some contrast was noted to drain from the left ureteral orifice but due to tumor burden was unable to identify the orifice. Attempt was made using a angled Glidewire but this was unsuccessful as it was a blind attempt. Decision was made then to abort the procedure and consult interventional radiology for placement of a left percutaneous nephrostomy tube with nephroureteral stent. Patient was made aware of this preoperatively and agreed to the procedure. Wolfgang West DO Jan 25, 2017 15:49
[2017-01-25] MEDS ORDERED: DO NOT ADM ANY ANTICOAGULANT DRUGS PRN (15:56)
[2017-01-25] MEDS ORDERED: fentaNYL CITRATE 250 MCG/5 ML AMP ONE ×2 (16:02→17:50)
[2017-01-25] MEDS ORDERED: MIDAZOLAM HCL 5 MG/5 ML VIAL ONE (17:49)
--- NOTE | 2017-01-25 18:48 | PD.RAD ---
Post Procedure Progress Note Pre Procedure Diagnosis: (1) Obstructive uropathy Post Procedure Diagnosis: (1) Obstructive uropathy Procedure Date: Jan 25, 2017 Supervising Radiologist: Carlos Ruelas Proceduralist/Assist: Helder Diego, RT(R), Martha Hooker RT(R)() Anesthesia: Conscious Sedation Plan of Activity Patient to Unit: Nursing Unit Patient Condition: Good Additional Comments: Placed 8.3F left PCN. Will convert to nephroureteral cath next week. See PACS Report for procedural detail/treatment Carlos Ruelas MD Jan 25, 2017 18:48
[2017-01-25] MEDS ORDERED: IOHEXOL 350 MG/ML 50 ML BTL (for RAD DIAG) OTHER ONE (19:18)
[2017-01-25 20:30] VITALS: BP 131/71; PULSE 77; RESP 20; TEMP 97.9; O2SAT 93
[2017-01-26] VITALS: BP 138/76; PULSE 81; RESP 20; TEMP 97.9; O2SAT 92
[2017-01-26] MEDS: HYDROmorphone HCL PF 1 MG/ML VIAL IV PUSH PRN ×2 (03:20→16:54)
[2017-01-26] MEDS: ACETAMINOPHEN/HYDROcodone 325 MG/5 MG TAB PO PRN ×2 (03:35→09:38)
[2017-01-26 04:00] VITALS: BP 129/72; PULSE 81; RESP 20; TEMP 98.5; O2SAT 93
[2017-01-26 08:54] VITALS: BP 139/73; PULSE 75; RESP 20; TEMP 97.2; O2SAT 93
[2017-01-26] MEDS: SODIUM CHLORIDE 0.9% FLUSH 10 ML FLUSH IV FLUSH SCH ×2 (09:00→21:31)
[2017-01-26 11:59] VITALS: BP 125/70; PULSE 76; RESP 20; TEMP 98.2; O2SAT 93
[2017-01-26 13:10] LABS: BICARBONATE 29.4 MEQ/L (21.0-32.0); POTASSIUM 3.5 MEQ/L (3.5-5.1)
[2017-01-26 17:22] VITALS: BP 142/79; PULSE 74; RESP 20; TEMP 98.8; O2SAT 96
--- NOTE | 2017-01-26 18:10 | HHI.PR ---
Subjective Remarks Patient seen today around 11 AM. Says she is feeling all right. Reports left percutaneous nephrostomy pain is under control. Denies any chest pain or shortness of breath. Objective Vital Signs Date Time Temp Pulse Resp B/P Pulse Ox O2 Delivery O2 Flow Rate FiO2 01/26/17 17:22 98.8 74 20 142/79 96 01/26/17 11:59 98.2 76 20 125/70 93 01/26/17 08:54 97.2 75 20 139/73 93 01/26/17 04:00 98.5 81 20 129/72 93 01/26/17 00:00 97.9 81 20 138/76 92 01/25/17 20:30 97.9 77 20 131/71 93 01/25/17 20:00 98.2 77 16 120/75 96 Nasal Cannula 2 01/25/17 19:45 73 16 117/72 95 Nasal Cannula 2 01/25/17 19:30 69 15 111/66 95 Nasal Cannula 2 01/25/17 19:15 72 15 129/72 95 Nasal Cannula 2 01/25/17 19:07 98.2 80 15 138/72 98 Nasal Cannula 3 I/O 01/25/17 01/25/17 01/25/17 01/26/17 01/26/17 01/26/17 07:00 15:00 23:00 07:00 15:00 23:00 Intake Total 1350 ml 480 ml Output Total 925 ml 425 ml 650 ml Balance 425 ml 55 ml -650 ml Intake Oral 480 ml IV Total 250 ml Other 1100 ml Output Urine Total 775 ml Drainage Total 150 ml 425 ml 650 ml # Voids 2 3 5 # Bowel Movements 0 Result Diagram: 01/24/17 1450 01/26/17 1217 Objective Remarks GENERAL: Sitting up in bed. Appears comfortable. SKIN: Warm and dry. HEAD: Normocephalic. EYES: No scleral icterus. No injection or drainage. NECK: Supple, trachea midline. No JVD or lymphadenopathy. CARDIOVASCULAR: Regular rate and rhythm without murmurs, gallops, or rubs. RESPIRATORY: Breath sounds equal bilaterally. No accessory muscle use. GASTROINTESTINAL: Abdomen soft, non-tender, nondistended. Percutaneous nephrostomy tube without any surrounding erythema. Yellow urine. MUSCULOSKELETAL: No cyanosis, or edema. BACK: Nontender without obvious deformity. No CVA tenderness. A/P Assessment and Plan 01/26/17. -Laxatives ordered. Patient requests no laxatives given tonight. Requests to be given morning 71 y/o female with stage IV endometrial cancer with new onset of left lower quadrant abdominal pain: //Endometrial cancercurrently follows with Dr. Bustamante Bladder mass with obstructive uropathy //Lymphadenopathy - Abdomen/pelvis CT with IV contrast showed acute obstructive uropathy of the left distal ureter likely secondary to irregular bladder wall mass along the left lateral wall resulting in moderate to severe ureteropelvicaliectasis. Stable enlarged uterus and endometrium consistent with the known endometrial carcinoma. //New left debby pelvic mass measuring 5.8 x 4.7 cm consistent with enlarged left ovary or new lymphadenopathy. Mild to moderate right hydronephrosis which is stable compared to the previous examination. - Consult urology - Dr. West - assistance appreciated continue with pain management: Dilaudid increased to 1 mg IV q2h PRN pain > 5 - Dr west unable to place JJ stent - perc nephrostomy paced by IR on 01/25 - plan to convert to internal stent this coming week. //DVT prophylaxis - SCDs/TEDs, anticoagulation as per urology. Discharge Planning Home when cleared by urology Kilo Flores MD Jan 26, 2017 18:10 Kilo Flores MD Jan 26, 2017 18:10
[2017-01-26] MEDS ORDERED: MAGNESIUM CITRATE SOLN 300 ML BTL PO ONE (18:15)
--- NOTE | 2017-01-26 19:11 | RADRPT ---
EXAM DATE/TIME: 01/26/2017 19:04 [facility] COMPARISON: CT ABDOMEN & PELVIS W CONTRAST, January 24, 2017, 15:55. INDICATIONS : Shortness of breath. MEDICAL HISTORY : Hepatitis B. Endometrial cancer for one year. SURGICAL HISTORY : Infusaport. ENCOUNTER: Initial ACUITY: 1 day PAIN SCORE: 0/10 LOCATION: Bilateral chest FINDINGS: The lungs are symmetrically aerated. There is a horizontal linear opacity in the lower lateral left lung suggesting scar or atelectasis. Calcified nonenlarged infrahilar lymph node on the left side. [id number] catheter tip projects over the proximal superior vena cava. No focal infiltrates seen. Both hemidiaphragms well delineated. Heart is normal size. No evidence of pneumothorax. CONCLUSION: Scarring or atelectasis lower left lung. Granulomatous calcification left chest. No focal infiltrat es or consolidations seen. Brett Liu MD on January 26, 2017 at 19:08 Board Certified Radiologist. This report was verified electronically.
[2017-01-26 20:00] VITALS: BP 148/77; PULSE 84; RESP 18; TEMP 98.8; O2SAT 94
[2017-01-27] VITALS (7 sets, daily range): BP systolic 127–150; BP diastolic 74–83; PULSE 71–84; RESP 18; TEMP 97.6–98.9; O2SAT 92–100
[2017-01-27] MEDS: SODIUM CHLORIDE 0.9% FLUSH 10 ML FLUSH IV FLUSH SCH ×2 (08:00→19:50)
[2017-01-27] MEDS ORDERED: IOHEXOL 350 MG/ML 10 ML VIAL (for RAD DIAG) IV ONE (10:35)
--- NOTE | 2017-01-27 10:43 | RADRPT ---
EXAM DATE/TIME: 01/27/2017 10:19 [facility] COMPARISON: CT PULMONARY ANGIOGRAM, November 10, 2016, 19:31. INDICATIONS : Chest pain and shortness of breath. IV CONTRAST: 70 cc Omnipaque 350 (iohexol) IV RADIATION DOSE: 8.97 CTDIvol (mGy) MEDICAL HISTORY : Carcinoma, breast. SURGICAL HISTORY : endometrial tumor ENCOUNTER: Initial ACUITY: 1 day PAIN SCALE: 5/10 LOCATION: Bilateral chest TECHNIQUE: Volumetric scanning of the chest was performed using a pulmonary embolism protocol MIP images were re constructed. Using automated exposure control and adjustment of the mA and/or kV according to patien t size, radiation dose was kept as low as reasonably achievable to obtain optimal diagnostic quality images. DICOM format image data is available electronically for review and comparison. Follow-up recommendations for incidentally detected pulmonary nodules are based at a minimum on nodul e size and patient risk factors according to Fleischner Society Guidelines. FINDINGS: Minimal parenchymal changes are present in the left base with trace right pleural effusion. There is no axillary or mediastinal adenopathy There is no evidence for central pulmonary emboli Moderate ascites is evident CONCLUSION: 1. Negative for pulmonary emboli 2. Moderate ascites 3. Minimal parenchymal changes left base small right pleural effusion. Jimmy Alexander MD FACR on January 27, 2017 at 10:40 Board Certified Radiologist. This report was verified electronically.
--- NOTE | 2017-01-27 12:32 | HHI.PR ---
Subjective Remarks Acute events overnight. Afebrile, vital signs stable. Patient denies any chest pain, states her breathing is within normal limits. Has pain at nephrostomy tube insertion site upon moving. Also has itching at the site of the bandage. Objective Vitals Vital Signs Date Time Temp Pulse Resp B/P Pulse Ox O2 Delivery O2 Flow Rate FiO2 01/27/17 08:00 97.7 71 18 136/80 96 01/27/17 06:29 98.9 79 18 127/74 93 01/27/17 00:00 98.5 84 18 127/79 94 01/26/17 20:00 98.8 84 18 148/77 94 01/26/17 17:22 98.8 74 20 142/79 96 I/O 01/26/17 01/26/17 01/26/17 01/27/17 01/27/17 01/27/17 06:59 14:59 22:59 06:59 14:59 22:59 Intake Total 480 ml Output Total 425 ml 650 ml 650 ml 825 ml Balance 55 ml -650 ml -650 ml -825 ml Intake Oral 480 ml Drainage Total 425 ml 650 ml 650 ml 825 ml # Voids 3 5 # Bowel Movements 0 Result Diagram: 01/24/17 1450 01/26/17 1217 Objective Remarks GENERAL: Sitting up in bed. Appears comfortable. SKIN: Warm and dry. HEAD: Normocephalic. EYES: No scleral icterus. No injection or drainage. NECK: Supple, trachea midline. No JVD or lymphadenopathy. CARDIOVASCULAR: Regular rate and rhythm without murmurs, gallops, or rubs. RESPIRATORY: Breath sounds equal bilaterally. No accessory muscle use. GASTROINTESTINAL: Abdomen soft, non-tender, nondistended. Percutaneous nephrostomy tube without any surrounding erythema. Yellow urine. MUSCULOSKELETAL: No cyanosis, or edema. BACK: Nontender without obvious deformity. No CVA tenderness. Nephrostomy tube is above A/P Problem List: (1) Obstructive uropathy ICD Code: N13.9 Status: Acute (2) Endometrial cancer ICD Code: C54.1 Status: Acute (3) Pelvicaliectasis ICD Code: N28.89 Status: Acute (4) Bladder mass ICD Code: N32.89 Status: Acute Assessment and Plan 71 y/o female with stage IV endometrial cancer with new onset of left lower quadrant abdominal pain: //Endometrial cancercurrently follows with Dr. Bustamante Bladder mass with obstructive uropathy Patient scheduled for chemotherapy Saturday, defer to Dr. Horn //Lymphadenopathy - Abdomen/pelvis CT with IV contrast showed acute obstructive uropathy of the left distal ureter likely secondary to irregular bladder wall mass along the left lateral wall resulting in moderate to severe ureteropelvicaliectasis. Stable enlarged uterus and endometrium consistent with the known endometrial carcinoma. //New left debby pelvic mass measuring 5.8 x 4.7 cm consistent with enlarged left ovary or new lymphadenopathy. Mild to moderate right hydronephrosis which is stable compared to the previous examination. - Consult urology - Dr. West - assistance appreciated continue with pain management: Dilaudid increased to 1 mg IV q2h PRN pain > 5 - Dr west unable to place JJ stent - perc nephrostomy paced by IR on 01/25 - plan to convert to internal stent this coming week. //SOB/Pleuritic chest pain - Elevated D dimer - CTA negative for PE - ACS r/o negative - Improved //DVT prophylaxis - SCDs/TEDs, anticoagulation as per urology. Jenn Chacon MD R3 Jan 27, 2017 12:32
--- NOTE | 2017-01-27 14:39 | EKG ---
Date Performed: 01/27/2017 Time Performed: 07:05:29 PTAGE: 71 years EKG: Left axis deviation Compared to prior tracing no significant change PREVIOUS TRACING : 01/26/2017 21.32 DOCTOR: Arturo Treadwell Interpretating Date/Time 01/27/2017 14:38:48
--- NOTE | 2017-01-27 14:39 | EKG ---
Date Performed: 01/27/2017 Time Performed: 01:18:28 PTAGE: 71 years EKG: Sinus rhythm . Possible left anterior fascicular block Borderline ECG PREVIOUS TRACING 01/26/2017 Compared to prior tracing no significant change DOCTOR: Arturo Treadwell Interpretating Date/Time 01/27/2017 14:38:27
--- NOTE | 2017-01-27 14:39 | EKG ---
Date Performed: 01/26/2017 Time Performed: 21:32:23 PTAGE: 71 years EKG: Left axis deviation Since PREVIOUS TRACING , no significant change. PREVIOUS TRACIN11/10/2016 17.46 DOCTOR: Arturo Treadwell Interpretating Date/Time 01/27/2017 14:37:23
[2017-01-27] MEDS: HYDROmorphone HCL PF 1 MG/ML VIAL IV PUSH PRN ×3 (16:07→22:59)
[2017-01-27] MEDS: SODIUM CHLORIDE 0.9% FLUSH 10 ML FLUSH IV FLUSH PRN (22:59)
[2017-01-28] VITALS (10 sets, daily range): BP systolic 121–150; BP diastolic 66–80; PULSE 66–83; RESP 15–18; TEMP 98.1–98.5; O2SAT 93–97
--- NOTE | 2017-01-28 08:32 | HHI.PR ---
Subjective Patient symptoms today Pt seen and examined. S/P left PCNT on Saturday. Flank pain improved. Objective Vital Signs Vital Signs Date Time Temp Pulse Resp B/P Pulse Ox O2 Delivery O2 Flow Rate FiO2 01/28/17 04:00 98.5 77 18 130/69 95 01/28/17 00:00 98.4 83 18 129/68 93 01/27/17 20:00 98.4 80 18 127/76 92 01/27/17 19:42 95 21 01/27/17 17:08 97.6 75 18 150/81 100 01/27/17 12:00 98.4 72 18 141/83 94 Intake & Output 01/28/17 01/28/17 06:59 18:59 Intake Total 480 ml Output Total 1100 ml Balance -620 ml Intake Oral 480 ml Drainage Total 1100 ml Result Diagram: 01/24/17 1450 01/26/17 1217 Objective Remarks Abd:generalized tenderness on exam, Left CVAT noted 01/28 Abd:soft,nt,nd Left PCNT: clear urine Medications and IVs Current Medications Medications (Trade) Dose Ordered Sig/Nancy Route Start Time Stop Time Status Last Admin (NS Flush) 2 ml UNSCH PRN IV FLUSH 01/24/17 19:00 01/27/17 22:59 (NS Flush) 2 ml BID IV FLUSH 01/24/17 21:00 01/27/17 19:50 (Tylenol) 650 mg Q6H PRN PO 01/24/17 19:00 (Narcan Inj) 0.4 mg UNSCH PRN IV 01/24/17 19:00 (Dilaudid Pf Inj) 1 mg Q2HR PRN IV PUSH 01/25/17 00:45 01/27/17 22:59 (Zofran Inj) 4 mg Q6HR PRN IV PUSH 01/25/17 00:45 ([place] 5-325 Mg) 1 tab Q4H PRN PO 01/25/17 10:15 01/26/17 09:38 Assessment and Plan Assessment and Plan 71 y.o female with Stage 4 endometrial cancer Recommend left JJ stent insertion in OR today due to symptoms of nausea/left flank pain and enlargement of pelvic mass. Risks and benefits discussed and pt is willing to proceed. 01/28 71 y.o female with Stage 4 endometrial cancer s/p left PCNT For internalization today per Wolfgang White DO Jan 28, 2017 08:32
[2017-01-28 08:52] LABS: AUTOMATED NEUTROPHIL # 3.1 TH/MM3 (1.8-7.7); BASOPHIL % 0.9 % (0.0-2.0); EOSINOPHIL # 0.1 TH/MM3 (0-0.4); EOSINOPHIL % 1.7 % (0.0-4.0); HEMATOCRIT 32.6 % (35.0-46.0); HEMO FLAGS DIFF FINAL; LYMPH % 21.2 % (9.0-44.0); MEAN CELL VOLUME 96.7 FL (80.0-100.0); MEAN CORPUSCULAR HEMOGLOBIN 33.8 PG (27.0-34.0); MONO % 12.4 % (0.0-8.0); NEUT % 63.8 % (16.0-70.0); PLATELET COUNT 147 TH/MM3 (150-450); RED BLOOD COUNT 3.38 MIL/MM3 (4.00-5.30); RED CELL DISTRIBUTION WIDTH 15.9 % (11.6-17.2); WHITE BLOOD COUNT 4.8 TH/MM3 (4.0-11.0)
--- NOTE | 2017-01-28 08:58 | RADRPT ---
EXAM DATE/TIME: 01/25/2017 18:15 [facility] COMPARISON: No previous studies available for comparison. INDICATIONS : Patient presents with acute obstructive uropathy in need of nephrostomy tube placement for drainage. MEDICAL HISTORY : Stage IV endometrial Cancer Degenerative Disc Disease Benign breast biopsy Bilateral PE 10/2015 SURGICAL HISTORY : Right nephrostomy Right ureteral stents Cystoscopy Rhinoplasty Right breast biopsy ENCOUNTER: Subsequent ACUITY: 1 day PAIN SCORE: 0/10 LOCATION: N/A FLUORO TIME: 3.4 minutes IMAGE SERIES: 0 SEDATION TIME: 45 minutes CONTRAST: 15 cc Omnipaque (iohexol) 350 MEDICATION(S): 1.) 5 mg midazolam (Versed) IV 2.) 250 mcg fentanyl (Sublimaze) IV DEVICE(S): 1.) 8.3FR X 25CM EXPEL DRAINAGE CATH PROCEDURE : 1. Ultrasound-guided puncture of the kidney. 2. Antegrade percutaneous pyelogram. 3. Percutaneous nephrostomy placement. 4. Conscious sedation with continuous EKG and oximetry monitoring. The risks, benefits and alternatives to the procedure were explained and verbal and written consent w as obtained. The site was prepped in sterile fashion. Full sterile technique was used, including ca p, mask, sterile gloves and gown and a large sterile sheet. Hand hygiene and 2% chlorhexidine and/or betadine/alcohol prep was utilized per protocol for cutaneous antisepsis. The skin and subcutaneous tissues were infiltrated with local anesthetic solution. With ultrasound and fluoroscopic guidance the selected kidney was punctured and a percutaneous antegr julian pyelogram was performed demonstrating a dilated collecting system. Serial dilatation was perform ed and a prescribed nephrostomy tube was placed within the renal pelvis and sutured in place. Conscious sedation was performed with the prescribed dosages and duration as above in the presence of an independent trained radiology nurse to assist in the monitoring of the patient. EKG and oximetry remained stable throughout the procedure. The patient tolerated the procedure well and there were n o complications. The patient was sent to post anesthesia recovery in stable condition. CONCLUSION: Uncomplicated nephrostomy tube placement as above. Carlos Ruelas MD on January 28, 2017 at 8:53 Board Certified Radiologist. This report was verified electronically.
[2017-01-28 09:05] LABS: BICARBONATE 22.7 MEQ/L (21.0-32.0); POTASSIUM 4.1 MEQ/L (3.5-5.1)
[2017-01-28] MEDS: SODIUM CHLORIDE 0.9% FLUSH 10 ML FLUSH IV FLUSH SCH ×2 (09:05→20:55)
--- NOTE | 2017-01-28 13:44 | MB ---
cc: BARBER DELGADO,MICKY RUBIN M.D., MD,ADINA PORRAS DATE OF CONSULTATION 01/25/2017 PHYSICIAN REQUESTING CONSULT Amna Fitch MD REASON FOR CONSULTATION Known to us. DIAGNOSIS Stage IV uterine papillary serous carcinoma. HISTORY An 71-year-old female who was admitted for pain, found on exam and imaging to have measurable disease in the pelvis that is causing significant hydronephrosis on the left side, irregular masses along the lateral edge of the lateral border of the bladder and other fullness in the pelvis noted, mild to moderate right hydro was stable compared to prior exam. Urology had been consulted at the time of seeing her. I spent time in talking with Karan Mosquera. Her concern is a wanting to stay on schedule as much as possible with her treatment. She is currently philosophically aligned with continuing aggressive treatment. She requests a full dose of Taxol and carboplatin and is willing to take the Neulasta stem cell support injection. This has previously been an area of much Discussion. I explained that there is some mixed information in her findings as the hydronephrosis on the left seems new or more severe and there is measurable disease in the pelvis that is more pronounced or new compared to prior exam. Conversely the CA-125 which has been a reasonable marker for her has been declining such that on the last three measurements it was approximately 260, 230 and then most recently 199. I do not have immediate access to those records available but we know that the last three measurements have been improving. Discussion ensued. Questions were answered. Sorry she is feeling poorly but she is very much in staying aggressive with the underlying treatment. PAST MEDICAL HISTORY From our standpoint is notable for the Stage IV papillary serous cancer. At the time of presentation it was infiltrating through into the parametria to the pelvic sidewall replacing the upper vagina with intraperitoneal and retroperitoneal carcinomatosis, metastatic disease. She was not a candidate for surgical intervention. She has now received I believe 10 cycles of Taxol and carboplatin, although there had been some breaks in therapy such that treatment has not been continuous as has previously been documented. 1. Medical history from my standpoint notable for the Stage IV endometrial cancer (uterine papillary serous). 2. History of pulmonary emboli. 3. Degenerative disk disease. PAST SURGICAL HISTORY 1. Cystoscopy. 2. Ureteral stents. 3. section. 4. Breast biopsy. 5. Prior nephrostomy. ALLERGIES LATEX. PENICILLIN. PENTOTHAL. MEDICATIONS 1. She takes p.r.n. as needed regarding symptoms of treatment. 2. Decadron prior to chemotherapy. 3. Zofran. 4. Ativan. 5. Percocet prescriptions available but reports she takes as well medication as possible. OBJECTIVE Labs drawn on 01/24 showed a white count of 6.2, H&H 11 and 32.7, platelets 152. Electrolytes showed relative preservation of her renal function although creatinine is elevated slightly with BUN and creatinine of 20 and 1.08. On exam she was in no acute distress, alert and oriented x 3. Further exam not repeated given recent exam in the office and her forthcoming scheduled followup. Our meeting was limited to encounter discussion to ensure that she is in favor of treatment, to review the pros and cons of treatment with and without Neulasta and she is very much in favor of full dose and with Neulasta which she is now willing to take and she is scheduled for treatment on January 29. If she is doing better and is an outpatient, we can move forward at that time. We are reminded that she had a recent office visit scheduled with me but for some reason she cancelled and was not able to keep that appointment but we will plan to see her in our office in followup. We have no additional recommendations from an oncology standpoint at this time. Appreciate the care from the hospitalist service, Urology and others. ASSESSMENT 1. Stage IV recurrent/persistent uterine papillary serous carcinoma. 2. New measurable disease in the pelvis with severe left hydronephrosis. 3. Discussion including confirmation that she remains steadfast in her hope to be aggressive in ongoing treatment. PLAN 1. Agree with hospital admission, supportive care, palliative care, urology evaluation recommendations and defer to their guidance. 2. No new recommendations from an oncology standpoint. 3. Continue present management. MD JOANIE Delarosa/TONI /11:48 AM /1:16 PM
[2017-01-28] MEDS ORDERED: MIDAZOLAM HCL 2 MG/2 ML VIAL ONE ×2 (14:11→15:11)
[2017-01-28] MEDS ORDERED: fentaNYL CITRATE 250 MCG/5 ML AMP ONE (14:12)
[2017-01-28] MEDS ORDERED: LEVOFLOXACIN 500 MG PREMIX INJ 100 ML IV ONE (14:49)
--- NOTE | 2017-01-28 15:58 | HHI.PR ---
Subjective Remarks Pt evaluated earlier around lunch time. Pt states that she is a bit confused about what is going on. She would like to better understand the plan. Currently her pain is controlled. She had some mild nausea but no vomiting. Denies any chest pain, shortness of breath. Objective Vitals Vital Signs Date Time Temp Pulse Resp B/P Pulse Ox O2 Delivery O2 Flow Rate FiO2 01/28/17 12:00 98.2 69 16 150/80 95 01/28/17 09:54 94 21 01/28/17 08:00 98.1 70 15 126/78 94 01/28/17 04:00 98.5 77 18 130/69 95 01/28/17 00:00 98.4 83 18 129/68 93 01/27/17 20:00 98.4 80 18 127/76 92 01/27/17 19:42 95 21 01/27/17 17:08 97.6 75 18 150/81 100 I/O 01/27/17 01/27/17 01/27/17 01/28/17 01/28/17 01/28/17 06:59 14:59 22:59 06:59 14:59 22:59 Intake Total 240 ml 480 ml Output Total 825 ml 400 ml 500 ml 1100 ml 450 ml Balance -825 ml -160 ml -20 ml -1100 ml -450 ml Intake Oral 240 ml 480 ml Drainage Total 825 ml 400 ml 500 ml 1100 ml 450 ml # Voids 4 # Bowel Movements 3 Result Diagram: 01/28/17 0735 01/28/[address] Angiography 01/27/17 0000 Signed Impressions: Service Date/Time: Friday, January 27, 2017 10:19 - CONCLUSION: 1. Negative for pulmonary emboli 2. Moderate ascites 3. Minimal parenchymal changes left base small right pleural effusion. Jimmy Alexander MD FACR Chest X-Ray 01/26/17 0000 Signed Impressions: Service Date/Time: Thursday, January 26, 2017 19:04 - CONCLUSION: Scarring or atelectasis lower left lung. Granulomatous calcification left chest. No focal infiltrates or consolidations seen. Brett Liu MD Abdomen/Pelvis CT 01/24/17 1441 Signed Impressions: Service Date/Time: December 15:55 - CONCLUSION: 1. Acute obstructive uropathy of the left distal ureter likely secondary to irregular bladder wall mass along the left lateral wall resulting in moderate to severe ureteropelvicaliectasis and delayed nephrogram on the left. Cystoscopy may be helpful for to confirm bladder wall mass in this patient if not already performed. 2. Stable enlarged uterus and endometrium consistent with the patient's known endometrial carcinoma. 3. New left debby pelvic mass measuring 5.8 x 4.7 cm consistent with enlarged left ovary or new lymphadenopathy. 4. Uncomplicated colonic diverticulosis. 5. Minimal ascites. 6. Mild to moderate right hydronephrosis which is stable compared to the previous examination. 7. Degenerative changes involving the lumbar and lower thoracic spine. James Mayorga MD Nephrostomy 01/24/17 0000 Signed Impressions: Service Date/Time: Wednesday, January 25, 2017 18:15 - CONCLUSION: Uncomplicated nephrostomy tube placement as above. Carlos Ruelas MD Objective Remarks GENERAL: Ambulating in the room SKIN: Warm and dry. HEAD: Normocephalic. EYES: Extraocular motion intact. NECK: trachea midline. No JVD or lymphadenopathy. CARDIOVASCULAR: Regular rate and rhythm without murmurs RESPIRATORY: Breath sounds equal bilaterally. No accessory muscle use. GASTROINTESTINAL: Abdomen soft, non-tender, nondistended. Percutaneous nephrostomy tube without any surrounding erythema. Yellow urine. MUSCULOSKELETAL: No cyanosis, or edema. BACK: Nontender without obvious deformity. No CVA tenderness. Nephrostomy tube is above A/P Problem List: (1) Obstructive uropathy ICD Code: N13.9 Status: Acute (2) Endometrial cancer ICD Code: C54.1 Status: Acute (3) Pelvicaliectasis ICD Code: N28.89 Status: Acute (4) Bladder mass ICD Code: N32.89 Status: Acute Assessment and Plan 71 y/o female with stage IV endometrial cancer with new onset of left lower quadrant abdominal pain: //Endometrial cancercurrently follows with Dr. Bustamante Bladder mass with obstructive uropathy Patient scheduled for chemotherapy this week, defer to Dr. Horn //Lymphadenopathy - Abdomen/pelvis CT with IV contrast showed acute obstructive uropathy of the left distal ureter likely secondary to irregular bladder wall mass along the left lateral wall resulting in moderate to severe ureteropelvicaliectasis. Stable enlarged uterus and endometrium consistent with the known endometrial carcinoma. //New left debby pelvic mass measuring 5.8 x 4.7 cm consistent with enlarged left ovary or new lymphadenopathy. Mild to moderate right hydronephrosis which is stable compared to the previous examination. - Urology following - Dr. West - assistance appreciated continue with pain management - Dr west unable to place JJ stent - perc nephrostomy paced by IR on 01/25 - plan to convert to internal stent later today by IR //SOB/Pleuritic chest pain - Elevated D dimer - CTA negative for PE - ACS r/o negative - Improved //DVT prophylaxis - SCDs/TEDs, anticoagulation as per urology. Discharge Planning anticipate d/c tomorrow if cleared by urology Fernanda Dalal MD Jan 28, 2017 15:58
[2017-01-28] MEDS ORDERED: ACETAMINOPHEN/HYDROcodone 325 MG/10 MG TAB PO PRN (16:00)
--- NOTE | 2017-01-28 16:02 | PD.RAD ---
Post Procedure Progress Note Pre Procedure Diagnosis: (1) Bladder mass (2) Ureteral obstruction Post Procedure Diagnosis: (1) Bladder mass (2) Ureteral obstruction Procedure Date: Jan 28, 2017 Supervising Radiologist: Carlos Ruelas Proceduralist/Assist: Ariel Valles, RT(R), Senia Rodriguez RT(R)() Anesthesia: Local, Conscious Sedation Plan of Activity Patient to Unit: Nursing Unit Patient Condition: Good Additional Comments: Placed 8F urteral stent. replaced 8F PCN. Will keep capped with plan for removal if pt is asymptomatic by Saturday. See PACS Report for procedural detail/treatment Carlos Ruelas MD Jan 28, 2017 16:02
[2017-01-28] MEDS ORDERED: IOHEXOL 350 MG/ML 50 ML BTL (for RAD DIAG) OTHER ONE (16:22)
[2017-01-28] MEDS: HYDROmorphone HCL PF 1 MG/ML VIAL IV PUSH PRN (17:01)
--- NOTE | 2017-01-28 17:43 | RADRPT ---
EXAM DATE/TIME: 01/28/2017 14:57 [facility] COMPARISON: No previous studies available for comparison. INDICATIONS : Patient with history of acute obstructive uropathy in need of nephrostomy tube exchange for internali zed nephroureteral stent. MEDICAL HISTORY : Stage IV endometrial Cancer Degenerative Disc Disease Benign breast biopsy Bilateral PE 10/2015 SURGICAL HISTORY : Right nephrostomy Right ureteral stents Cystoscopy Rhinoplasty Right breast biopsy ENCOUNTER: Subsequent ACUITY: >1 year PAIN SCORE: 0/10 FLUORO TIME: 5.7 minutes IMAGE SERIES: 0 SEDATION TIME: 45 minutes CONTRAST: 30 cc Omnipaque (iohexol) 350 MEDICATION(S): 1.) 5 mg midazolam (Versed) IV 2.) 250 mcg fentanyl (Sublimaze) IV DEVICE(S): 1.) 8 Gabonese nephrostomy catheter 2.) 8 Gabonese x 26cm nephroureteral stent PROCEDURE : 1. placement of left ureteral stent 2. Replacement of left nephrostomy catheter 3. Conscious sedation with continuous EKG and Oximetry monitoring. The risks, benefits and alternatives to the procedure were explained and verbal and written consent w as obtained. The site was prepped in sterile fashion. Full sterile technique was used, including ca p, mask, sterile gloves and gown and a large sterile sheet. Hand hygiene and 2% chlorhexidine prep w as utilized per protocol for cutaneous antisepsis with appropriate dry time for site. The skin and s ubcutaneous tissues were infiltrated with local anesthetic solution. Contrast was injected through the existing pectineus nephrostomy catheter demonstrating appropriate c atheter position with residual mild to moderate hydronephrosis and hydroureter. Obstruction is at the UVJ level. Catheter was then removed over a glide wire. Glidewire was successfully advanced into the bladder. A second safety Bentson wire was advanced through a 5 Gabonese sheath. Next, 8 Gabonese double- J ureteral stent was deployed. An 8 Gabonese nephrostomy catheter was then advanced over the second wir e and formed into position. Contrast injected through the nephrostomy catheter demonstrated appropria te position of both catheters. Nephrostomy catheter was secured to the skin and will be capped. Conscious sedation was performed with the prescribed dosages and duration as above in the presence of an independent trained radiology nurse to assist in the monitoring of the patient. EKG and oximetry remained stable throughout the procedure. CONCLUSION: 1. Technically successful placement of double-J left-sided 8 Gabonese ureteral stent. 2. Patient's left nephrostomy catheter will be capped to with plans for removal if patient remains as ymptomatic for the next several days. Carlos Ruelas MD on January 28, 2017 at 17:38 Board Certified Radiologist. This report was verified electronically.
[2017-01-29 01:19] VITALS: BP 137/74; PULSE 82; RESP 18; TEMP 98.7; O2SAT 97
[2017-01-29 04:00] VITALS: BP 137/72; PULSE 74; RESP 18; TEMP 98.8; O2SAT 98
[2017-01-29 08:06] VITALS: BP 135/81; PULSE 70; RESP 17; TEMP 97.9; O2SAT 95
[2017-01-29] MEDS: SODIUM CHLORIDE 0.9% FLUSH 10 ML FLUSH IV FLUSH SCH (08:37)
--- NOTE | 2017-01-29 11:51 | HHI.PR ---
Subjective Patient symptoms today Pt feels well. Ready for discharge Objective Vital Signs Vital Signs Date Time Temp Pulse Resp B/P Pulse Ox O2 Delivery O2 Flow Rate FiO2 01/29/17 08:06 97.9 70 17 135/81 95 01/29/17 04:00 98.8 74 18 137/72 98 01/29/17 01:19 98.7 82 18 137/74 97 01/28/17 20:51 98.2 76 18 135/77 97 01/28/17 16:45 72 16 131/68 96 01/28/17 16:30 76 16 136/66 96 01/28/17 16:00 66 16 121/66 96 01/28/17 15:45 98.1 71 16 122/76 96 01/28/17 12:00 98.2 69 16 150/80 95 Intake & Output 01/29/17 01/29/17 07:00 19:00 Intake Total 360 ml Balance 360 ml Intake Oral 360 ml # Voids 2 # Bowel Movements 1 Result Diagram: 01/28/17 0735 01/28/17 0738 Objective Remarks Abd:generalized tenderness on exam, Left CVAT noted 01/28 Abd:soft,nt,nd Left PCNT: clear urine 01/29 Abd:soft,nt,nd Left PCNT capped. Medications and IVs Current Medications Medications (Trade) Dose Ordered Sig/Nancy Route Start Time Stop Time Status Last Admin (NS Flush) 2 ml UNSCH PRN IV FLUSH 01/24/17 19:00 01/27/17 22:59 (NS Flush) 2 ml BID IV FLUSH 01/24/17 21:00 01/29/17 08:37 (Tylenol) 650 mg Q6H PRN PO 01/24/17 19:00 (Narcan Inj) 0.4 mg UNSCH PRN IV 01/24/17 19:00 (Dilaudid Pf Inj) 1 mg Q2HR PRN IV PUSH 01/25/17 00:45 01/28/17 17:01 (Zofran Inj) 4 mg Q6HR PRN IV PUSH 01/25/17 00:45 (Randolph 5-325 Mg) 1 tab Q4H PRN PO 01/25/17 10:15 01/26/17 09:38 (Randolph 10-325 Mg) 1 tab Q4H PRN PO 01/28/17 16:00 Assessment and Plan Assessment and Plan 71 y.o female with Stage 4 endometrial cancer Recommend left JJ stent insertion in OR today due to symptoms of nausea/left flank pain and enlargement of pelvic mass. Risks and benefits discussed and pt is willing to proceed. 01/28 71 y.o female with Stage 4 endometrial cancer s/p left PCNT For internalization today per IR 01/29 71 y.o female with Stage 4 endometrial cancer s/p left PCNT For tube removal on Saturday per IR F/U with urology in 2 months. Wolfgang West DO Jan 29, 2017 11:51
[2017-01-29 12:16] VITALS: BP 131/76; PULSE 76; RESP 18; TEMP 97.9; O2SAT 95
[2017-01-29] MEDS ORDERED: HYDR-3288 PO (13:40)
[2017-01-29] MEDS: ACETAMINOPHEN/HYDROcodone 325 MG/5 MG TAB PO PRN (13:41)
--- NOTE | 2017-01-29 13:47 | HHI.DS ---
Discharge Summary Admission Date Jan 24, 2017 at 18:57 Discharge Date: Jan 29, 2017 Admitting Diagnosis Acute Obstructive Uropathy. (1) Obstructive uropathy ICD Code: N13.9 (2) Endometrial cancer ICD Code: C54.1 (3) Pelvicaliectasis ICD Code: N28.89 (4) Bladder mass ICD Code: N32.89 Procedures perc nephrostomy paced by IR on 01/2501/29/17 s/p urteral stent placement Brief History - From Admission Written by Amna Fitch, acting as scribe for Dr. Montes on 01/25/17 at 00:37. Left lower sided abdominal pain started 2 days ago and became progressively worse throughout the day - symptoms is severe. Pain has not been relieved with Dilaudid 0.5 mg IV. Denies problems urinating, dysuria, fever - has had hematuria on and off for one year and hematuria was present in a little bit of a greater amount this morning- had a stent that was removed one month ago on right. Reports nausea without vomiting, denies diarrhea. Denies falls, syncope, sob, black or bloody stools. CBC/BMP: 01/28/17 0735 01/28/17 0738 Significant Findings Laboratory Tests Test 01/26/17 01/27/17 01/27/17 01/28/17 20:37 03:25 11:10 07:35 D-Dimer Quantitative (PE/DVT) 4.83 MG/L FEU (0.00-0.50) Troponin I LESS THAN 0.02 LESS THAN 0.02 LESS THAN 0.02 NG/ML NG/ML NG/ML (0.02-0.05) (0.02-0.05) (0.02-0.05) Red Blood Count 3.38 MIL/MM3 (4.00-5.30) Hemoglobin 11.4 GM/DL (11.6-15.3) Hematocrit 32.6 % (35.0-46.0) Platelet Count 147 TH/MM3 (150-450) Monocytes (%) (Auto) 12.4 % (0.0-8.0) CA 125 Antigen 1485.9 U/ML (0.0-30.2) Test 01/28/17 07:38 Estimat Glomerular Filtration 60 ML/MIN (>89) Rate Imaging Last Impressions Ureter Stent X-Ray 01/28/17 0000 Signed Impressions: Service Date/Time: Saturday, January 28, 2017 14:57 - CONCLUSION: 1. Technically successful placement of double-J left-sided 8 Turkmen ureteral stent. 2. Patient's left nephrostomy catheter will be capped to with plans for removal if patient remains asymptomatic for the next several days. Carlos Ruelas MD CT Angiography 01/27/17 0000 Signed Impressions: Service Date/Time: Saturday, January 27, 2017 10:19 - CONCLUSION: 1. Negative for pulmonary emboli 2. Moderate ascites 3. Minimal parenchymal changes left base small right pleural effusion. Jimmy Alexander MD FACR Chest X-Ray 01/26/17 0000 Signed Impressions: Service Date/Time: Thursday, January 26, 2017 19:04 - CONCLUSION: Scarring or atelectasis lower left lung. Granulomatous calcification left chest. No focal infiltrates or consolidations seen. Brett Liu MD Abdomen/Pelvis CT 01/24/17 1441 Signed Impressions: Service Date/Time: December 15:55 - CONCLUSION: 1. Acute obstructive uropathy of the left distal ureter likely secondary to irregular bladder wall mass along the left lateral wall resulting in moderate to severe ureteropelvicaliectasis and delayed nephrogram on the left. Cystoscopy may be helpful for to confirm bladder wall mass in this patient if not already performed. 2. Stable enlarged uterus and endometrium consistent with the patient's known endometrial carcinoma. 3. New left debby pelvic mass measuring 5.8 x 4.7 cm consistent with enlarged left ovary or new lymphadenopathy. 4. Uncomplicated colonic diverticulosis. 5. Minimal ascites. 6. Mild to moderate right hydronephrosis which is stable compared to the previous examination. 7. Degenerative changes involving the lumbar and lower thoracic spine. James Mayorga MD Nephrostomy 01/24/17 0000 Signed Impressions: Service Date/Time: Wednesday, January 25, 2017 18:15 - CONCLUSION: Uncomplicated nephrostomy tube placement as above. Carlos Ruelas MD PE at Discharge GENERAL: Ambulating in the room SKIN: Warm and dry. HEAD: Normocephalic. EYES: Extraocular motion intact. NECK: trachea midline. No JVD or lymphadenopathy. CARDIOVASCULAR: Regular rate and rhythm without murmurs RESPIRATORY: Breath sounds equal bilaterally. No accessory muscle use. GASTROINTESTINAL: Abdomen soft, non-tender, nondistended. Percutaneous nephrostomy tube without any surrounding erythema. Yellow urine. MUSCULOSKELETAL: No cyanosis, or edema. BACK: Nontender without obvious deformity. No CVA tenderness. Nephrostomy tube is above Pt update on day of discharge Pt currently having flank pain which she rates a 5/10. States she would like to go home today and thinks she can go. She is agreeable to take a pain pill. no nausea or vomiting. Discussed w RN, pt usually doesn't want her pain pills. Pt refuses home health Hospital Course 71 y/o female with stage IV endometrial cancer with new onset of left lower quadrant abdominal pain: //Endometrial cancercurrently follows with Dr. Bustamante Bladder mass with obstructive uropathy Patient scheduled for chemotherapy this week, defer to Dr. Horn //Lymphadenopathy - Abdomen/pelvis CT with IV contrast showed acute obstructive uropathy of the left distal ureter likely secondary to irregular bladder wall mass along the left lateral wall resulting in moderate to severe ureteropelvicaliectasis. Stable enlarged uterus and endometrium consistent with the known endometrial carcinoma. //New left debby pelvic mass measuring 5.8 x 4.7 cm consistent with enlarged left ovary or new lymphadenopathy. Mild to moderate right hydronephrosis which is stable compared to the previous examination. - Urology following - Dr. West - she has been cleared for discharge. f/u w him in 2 months. - Dr west unable to place JJ stent - perc nephrostomy paced by IR on 01/25 - 01/29/17 s/p urteral stent placement. plan for removal if pt is asymptomatic by Saturday. f/u w IR then. //SOB/Pleuritic chest pain - Elevated D dimer - CTA negative for PE - ACS r/o negative - Improved Pt Condition on Discharge: Stable Discharge Disposition: Discharge Home Discharge Time: > 30 minutes Discharge Instructions DIET: Follow Instructions for: As Tolerated, No Restrictions Activities you can perform: Regular-No Restrictions Follow up Referrals: Referral - 02/01/17 with IR Urology with Wolfgang West DO New Medications: Hydrocodone-Acetaminophen ([place]) 7.5-325 mg Tab 1 TAB PO Q4-6H PRN PAIN #20 Ref 0 TAB Fernanda Dalal MD Jan 29, 2017 13:47
[2017-01-29 16:10] VITALS: BP 139/72; PULSE 78; RESP 18; TEMP 98.1; O2SAT 100
== END 2017-01-29 16:30 | disposition home or self-care (01) | DRG 755 ==
LOC: NEPC 14:06 → NEDA 18:57 → N05A 21:54
PROVIDERS: ADMIT Hospitalist; ATTEND Hospitalist
PROC: 0TJB8ZZ Inspection of Bladder, Via Natural or Artificial Opening Endoscopic (ICD-10-PCS; principal; 2017-01-25 14:28)
PROC: 0T903ZZ Drainage of Right Kidney, Percutaneous Approach (ICD-10-PCS; 2017-01-28)
PROC: BT1D1ZZ Fluoroscopy of Right Kidney, Ureter and Bladder using Low Osmolar Contrast (ICD-10-PCS; 2017-01-28)
PROC: 0T25X0Z Change Drainage Device in Kidney, External Approach (ICD-10-PCS; 2017-01-28)
DX: C54.1 Malignant neoplasm of endometrium (principal); N13.30 Unspecified hydronephrosis; K57.30 Diverticulosis of large intestine without perforation or abscess without bleeding; N13.5 Crossing vessel and stricture of ureter without hydronephrosis; N32.9 Bladder disorder, unspecified; N85.2 Hypertrophy of uterus; Z86.711 Personal history of pulmonary embolism
CPT/HCPCS: 50432; 71010; 71275; 74177; 74420; 76937; 80048; 80053; 83690; 84484; 85025; 85379; 85610; 85730; 86304; 93005; 96374; 99152; 99153; C1729; C1769; C1887; C1894; C2617; J0744; J1170; J1940; J1956; J2250; J2405; J3010; J7120; Q9967

== ENCOUNTER 2017-02-01 07:55 | Day surgery (SDC) | payer MEDICARE, MEDICAID ==
[~2017-02-01] VITALS: Ht 162.6 cm; Wt 72.7 kg
[~2017-02-01 07:55] MED LIST changes: -*MEPERIDINE 25 MG INJ VIAL PERIprocedural Use ONLY ONE; -ACETAMINOPHEN 1000 MG/100 ML VIAL IV ONE; -ACETAMINOPHEN/HYDROcodone 325 MG/5 MG TAB PO PRN; -BELLADONNA ALKALOIDS/OPIUM 60 MG SUPP RECTAL PRN; -CIPROFLOXACIN/DEXT 400 MG/200 ML IV SCH; -FAMOTIDINE 20 MG/2 ML VIAL IV ONE; +HYDR-3288 PO; -HYDR-3534 PO; -INSULIN HUMAN REGULAR 1,000 UNITS/10 ML VIAL SQ PRN; -IOHEXOL 350 MG/ML 100 ML BTL (for RAD DIAG) OTHER ONE; -LACTATED RINGER'S 1000 ML IV SCH; -METOPROLOL TARTRATE 25 MG TAB PO PRN; -MIDAZOLAM HCL 2 MG/2 ML VIAL ONE; -MORPHINE SULFATE 4 MG/ML INJ IV PRN; -ONDANSETRON HCL 4 MG/2 ML VIAL IV PUSH ONE; -ONDANSETRON HCL 4 MG/2 ML VIAL IV PUSH PRN; -PROPOFOL 200 MG/20 ML AMP IV ONE; -SODIUM CHLORID 0.9% 500 ML IV SCH
[2017-02-01 08:11] VITALS: BP 130/78; PULSE 84; RESP 18; TEMP 98; O2SAT 95
--- NOTE | 2017-02-01 09:47 | PD.RAD ---
Post Procedure Progress Note Pre Procedure Diagnosis: (1) Hydronephrosis, right Post Procedure Diagnosis: (1) Hydronephrosis, right Procedure Date: Feb 01, 2017 Supervising Radiologist: Brett Gomez JR Proceduralist/Assist: Jaylin Law, RT(R), Martha Hooker RT(R)() Anesthesia: Other Plan of Activity Patient to Unit: [facility]OP[facility] Patient Condition: Good Additional Comments: Nephrostomy tube has been capped. Pt is tolerating this. Mild hematuria noted. Injection of neph tube shows JJ stent in good position and is patent. Neph tube removed over a wire under fluoro. See PACS Report for procedural detail/treatment Jr Jason.,Brett Churchill MD Feb 01, 2017 09:47
[2017-02-01 09:50] VITALS: BP 116/73; PULSE 76; RESP 18; TEMP 98.6; O2SAT 95
[2017-02-01] MEDS ORDERED: IOHEXOL 350 MG/ML 50 ML BTL (for RAD DIAG) ONE (09:54)
[2017-02-01 10:05] VITALS: BP 112/70; PULSE 79; RESP 18; O2SAT 95
--- NOTE | 2017-02-07 09:12 | RADRPT ---
EXAM DATE/TIME: 02/01/2017 09:28 [facility] COMPARISON: No previous studies available for comparison. INDICATIONS : Patient with ureteral stent. Injection through nephrostomy tube for possible nephrostomy tube removal requested.. MEDICAL HISTORY : History of endometrial cancer, breast cancer, Hepatitis B, degenerative disc disease, bilateral PE. SURGICAL HISTORY : History of breast biopsy, bilateral ureteral stent placement and removal, bilateral nephrostomy tube placments and removals, cystoscopy, rhinoplasty, . ENCOUNTER: Subsequent ACUITY: 1 month PAIN SCORE: 5/10 LOCATION: Left lower quadrant FLUORO TIME: 0.5 minutes IMAGE SERIES: 2 CONTRAST: 10 cc Omnipaque (iohexol) 350 PROCEDURE : 1. Antegrade pyelogram. 2. Nephrostomy tube removal. The risks, benefits and alternatives to the procedure were explained and verbal and written consent w as obtained. The site was prepped in sterile fashion. Full sterile technique was used, including ca p, mask, sterile gloves and gown and a large sterile sheet. Hand hygiene and 2% chlorhexidine and/or betadine/alcohol prep was utilized per protocol for cutaneous antisepsis. The skin and subcutaneous tissues were infiltrated with local anesthetic solution. With fluoroscopic guidance the existing nephrostomy catheter was injected. Contrast injection shows the ureteral stent to be patent. The nephrostomy tube was ligated and removed over wire under fluoros copic control. Direct manual pressure was applied to the site. There were no complications and the patient was sent to post anesthesia recovery in stable condition. CONCLUSION: Uncomplicated nephrostomy tube removal as above. The double-J stent is patent. Brett Gomez Jr., MD on February 07, 2017 at 9:09 Board Certified Radiologist. This report was verified electronically.
== END 2017-02-01 10:24 | disposition home or self-care (01) ==
LOC: HROP 07:55 → HRIP 07:55 → HROP 10:24
PROVIDERS: ATTEND Radiology Diagnostic Radiology
DX: N13.30 Unspecified hydronephrosis (principal); B19.10 Unspecified viral hepatitis B without hepatic coma; Z85.3 Personal history of malignant neoplasm of breast; Z85.42 Personal history of malignant neoplasm of other parts of uterus; Z86.711 Personal history of pulmonary embolism
CPT/HCPCS: 50389; 50431; C1769; Q9967

== ENCOUNTER 2017-05-23 20:40 | Emergency (ER) | payer MEDICARE, OTHER ==
[~2017-05-23] VITALS: Ht 162.6 cm; Wt 72.0 kg
[2017-05-23 20:46] VITALS: BP 170/92; PULSE 98; RESP 18; TEMP 98.2
[2017-05-23] MEDS ORDERED: SODIUM CHLORIDE 0.9% FLUSH 10 ML FLUSH IV FLUSH PRN (21:00)
[2017-05-23 21:28] LABS: AUTOMATED NEUTROPHIL # 1.1 TH/MM3 (1.8-7.7); BASOPHIL % 1.3 % (0.0-2.0); EOSINOPHIL % 1.6 % (0.0-4.0); HEMATOCRIT 31.5 % (35.0-46.0); HEMO FLAGS DIFF FINAL; LYMPH % 34.9 % (9.0-44.0); LYMPHOCYTE # 0.8 TH/MM3 (1.0-4.8); MEAN CELL VOLUME 92.4 FL (80.0-100.0); MEAN CORPUSCULAR HEMOGLOBIN 31.4 PG (27.0-34.0); MONO % 11.1 % (0.0-8.0); NEUT % 51.1 % (16.0-70.0); PLATELET COUNT 128 TH/MM3 (150-450); RED BLOOD COUNT 3.41 MIL/MM3 (4.00-5.30); RED CELL DISTRIBUTION WIDTH 15.4 % (11.6-17.2); WHITE BLOOD COUNT 2.2 TH/MM3 (4.0-11.0)
[2017-05-23 21:35] VITALS: O2SAT 99
[2017-05-23 21:41] LABS: ALT (GPT) 18 U/L (10-53); ANION GAP 5 MEQ/L (5-15); AST (GOT) 15 U/L (15-37); BICARBONATE 28.8 MEQ/L (21.0-32.0); BLOOD UREA NITROGEN 28 MG/DL (7-18); CHLORIDE 109 MEQ/L (98-107); GLOMERULAR FILTRATION RATE 31 ML/MIN (>89); POTASSIUM 4.1 MEQ/L (3.5-5.1); SODIUM (NA) 143 MEQ/L (136-145)
[2017-05-23] MEDS ORDERED: ONDANSETRON HCL 4 MG/2 ML VIAL IV PUSH ONE (21:45)
[2017-05-23] MEDS ORDERED: MORPHINE SULFATE 2 MG/ML INJ IV PUSH ONE (21:45)
[2017-05-23 21:46] LABS: ALKALINE PHOSPHATASE 72 U/L (45-117); APTT (PATIENT) 25.7 SEC (24.3-30.1); INTERNATIONAL NORMALIZED RATIO 0.9 RATIO; PROTHROMBIN TIME - PATIENT 10.1 SEC (9.8-11.6); TOTAL BILIRUBIN ADULT 0.1 MG/DL (0.2-1.0)
[2017-05-23] MEDS ORDERED: SODIUM CHLOR 0.9% 1000 ML INJ 1,000 ML IV ONE (22:00)
--- NOTE | 2017-05-23 22:52 | RADRPT ---
EXAM DATE/TIME: 05/23/2017 22:24 [place] COMPARISON: No previous studies available for comparison. INDICATIONS : Abdominal pain. ORAL CONTRAST: No oral contrast ingested. RADIATION DOSE: 7.37 CTDIvol (mGy) MEDICAL HISTORY : Carcinoma, breast. Hepatitis B. SURGICAL HISTORY : Uretal stents. ENCOUNTER: Initial ACUITY: 1 day PAIN SCALE: 8/10 LOCATION: abdomen TECHNIQUE: Volumetric scanning of the abdomen and pelvis was performed. Using automated exposure control and ad justment of the mA and/or kV according to patient size, radiation dose was kept as low as reasonably achievable to obtain optimal diagnostic quality images. DICOM format image data is available electro nically for review and comparison. FINDINGS: Compare January 24. Stable calcified granuloma in the left lung base. No consolidation or effusion. No acute findings in the liver, spleen, adrenals or pancreas. No calcified gallstones. There is bilateral hydronephrosis with interval placement of a double-J left ureteral stent. Right-si ded hydronephrosis slightly worse compared with January 24. Mild residual left hydronephrosis. In the left lower quadrant there is an 8.1 x 5.2 cm soft tissue mass, increased in size slightly sinc e January 24. Again seen is a markedly enlarged uterus with nodularity and fluid in the endometrial cavi ty characteristic of reported endometrial carcinoma. There is thickening of the left side of the blad hailey wall similar to prior examination. Mild constipation. Trace free fluid in the pelvis. No free air. CONCLUSION: 1. Bilateral hydronephrosis, slightly worse on the right since January 24. Interval placement of left-si ded double-J stent with slight improvement in previous left hydronephrosis. Thickened left side bladd er wall remains. 2. Abdomen enlarged uterus with thickened endometrium and endometrial fluid characteristic of reporte d history of endometrial carcinoma, similar to January 24. 3. Increase in size of left neck mass now measuring up to 8.1 x 5.2 cm compared with January 24. 4. Colonic diverticulosis without diverticulitis. Tayo Driscoll MD on May 23, 2017 at 22:43 Board Certified Radiologist. This report was verified electronically.
[2017-05-23 23:44] VITALS: BP 135/76; PULSE 96; RESP 16; O2SAT 97
[2017-05-24 01:31] LABS: BLOOD, URINE MOD (NEG); GLUCOSE,URINE NEG (NEG); KETONE, URINE NEG (NEG); MUCUS URINE FEW /lpf (OCC); NITRITE,URINE NEG (NEG); PH, URINE 5.5 (5.0-8.5); RENAL EPITHELIAL CELLS 1 /hpf; SQUAMOUS EPITHELIAL CELL URINE <1 /hpf (0-5); URINE COLOR LIGHT-YELLOW (YELLW/STRAW)
[2017-05-24 01:33] LABS: COMMENT (UR) CULT NOT INDICATED; CULTURE IF INDICATED CULT NOT INDICATED
--- NOTE | 2017-05-24 01:43 | PD ---
HPI Chief Complaint: Abdominal Pain Time Seen by Provider: 20:58 Travel History International Travel<30 days: No Contact w/Intl Traveler<30days: No Traveled to known affect area: No History of Present Illness HPI 72-year-old female with uterine cancer presents to the emergency department for complaint of lower abdominal pain that worsens her ability to perform hip flexion. Patient states symptoms are progressive worsening such that she is having difficulty dressing herself and caring for herself at home. No fever no chills no nausea no vomiting no constipation no dysuria frequency urgency incontinence or retention. Patient has appointment with her oncologist on Saturday. PFSH Past Medical History Arthritis: No Heart Rhythm Problems: No Cancer: Yes (left breast tumor removed. STAGE 4 ENDOMETRIAL CA) Cardiovascular Problems: No High Cholesterol: No Chemotherapy: Yes Cerebrovascular Accident: No Diabetes: No Diminished Hearing: No Endocrine: No Genitourinary: Yes (LEFT AND RIGHT URETERAL STENT) Headaches: No Hepatitis: Yes (HEPATITIS B) Hiatal Hernia: No Immune Disorder: No Medical other: Yes (HERPES ON LIPS AND VAGINAL) Musculoskeletal: Yes (HERNIATED DISCS, RT NECK/SHOULDER PAIN) Neurologic: No Psychiatric: No Reproductive: Yes (ENDOMETRIAL TUMOR) Respiratory: No Immunizations Current: Yes Migraines: No Seizures: No Thyroid Disease: No ?: Not Menopausal: Yes : 3 Para: 1 Miscarriage: 0 : 2 Past Surgical History Abdominal Surgery: No AICD: No Body Medical Devices: RIGHT CHEST PORT Cardiac Surgery: No Section: Yes (X 1) Ear Surgery: No Endocrine Surgery: No Eye Surgery: No Genitourinary Surgery: No Gynecologic Surgery: Yes (c section) Joint Replacement: No Oral Surgery: No Pacemaker: No Thoracic Surgery: No Tonsillectomy: Yes Other Surgery: Yes (RHINOPLASTY) Social History Alcohol Use: No Tobacco Use: No Substance Use: No Allergies-Medications (Allergen,Severity, Reaction): Coded Allergies: latex (Unverified Allergy, Severe, hives, 05/23/17) penicillin G (Unverified Allergy, Severe, Anaphylaxis, 05/23/17) thiopental (Unverified Allergy, Severe, SODIUM PENTOTHAL; COULDN'T WAKE UP , 05/23/17) Reported Meds & Prescriptions Reported Meds & Active Scripts Active No Active Prescriptions or Reported Medications Physical Exam Narrative GENERAL: Well-developed well-nourished pleasant female in no acute distress no respiratory distress SKIN: Warm and dry. HEAD: Normocephalic. EYES: No scleral icterus. No injection or drainage. NECK: Supple, trachea midline. No JVD or lymphadenopathy. CARDIOVASCULAR: Regular rate and rhythm without murmurs, gallops, or rubs. RESPIRATORY: Breath sounds equal bilaterally. No accessory muscle use. GASTROINTESTINAL: Abdomen soft, bilateral lower quadrant tenderness without guarding or rebound, nondistended. MUSCULOSKELETAL: No cyanosis, or edema. BACK: Nontender without obvious deformity. No CVA tenderness. Data Data Last Documented VS Vital Signs Date Time Temp Pulse Resp B/P (MAP) Pulse Ox O2 Delivery O2 Flow Rate FiO2 05/24/17 01:53 05/23/17 23:44 96 16 97 Room Air 05/23/17 20:46 98.2 Orders Orders Complete Blood Count With Diff (05/23/17 20:58) Comprehensive Metabolic Panel (05/23/17 20:58) Lipase (05/23/17 20:58) Prothrombin Time / Inr (Pt) (05/23/17 20:58) Act Partial Throm Time (Ptt) (05/23/17 20:58) Urinalysis - C+S If Indicated (05/23/17 20:58) Iv Access Insert/Monitor (05/23/17 20:58) Ecg Monitoring (05/23/17 20:58) Oximetry (05/23/17 20:58) Sodium Chloride 0.9% Flush (Ns Flush) (05/23/17 21:00) Ondansetron Inj (Zofran Inj) (05/23/17 21:45) Morphine Inj (Morphine Inj) (05/23/17 21:45) Sodium Chlor 0.9% 1000 Ml Inj (Ns 1000 M (05/23/17 22:00) Ct Abd/Pel W/O Iv Contrast (05/23/17 20:58) Ed Discharge Order (05/24/17 01:41) Labs Laboratory Tests Test 05/23/17 21:15 05/24/17 01:05 White Blood Count 2.2 TH/MM3 Red Blood Count 3.41 MIL/MM3 Hemoglobin 10.7 GM/DL Hematocrit 31.5 % Mean Corpuscular Volume 92.4 FL Mean Corpuscular Hemoglobin 31.4 PG Mean Corpuscular Hemoglobin Concent 34.0 % Red Cell Distribution Width 15.4 % Platelet Count 128 TH/MM3 Mean Platelet Volume 7.3 FL Neutrophils (%) (Auto) 51.1 % Lymphocytes (%) (Auto) 34.9 % Monocytes (%) (Auto) 11.1 % Eosinophils (%) (Auto) 1.6 % Basophils (%) (Auto) 1.3 % Neutrophils # (Auto) 1.1 TH/MM3 Lymphocytes # (Auto) 0.8 TH/MM3 Monocytes # (Auto) 0.2 TH/MM3 Eosinophils # (Auto) 0.0 TH/MM3 Basophils # (Auto) 0.0 TH/MM3 CBC Comment DIFF FINAL Differential Comment Prothrombin Time 10.1 SEC Prothromb Time International Ratio 0.9 RATIO Activated Partial Thromboplast Time 25.7 SEC Blood Urea Nitrogen 28 MG/DL Creatinine 1.63 MG/DL Random Glucose 114 MG/DL Total Protein 7.2 GM/DL Albumin 3.4 GM/DL Calcium Level 8.9 MG/DL Alkaline Phosphatase 72 U/L Aspartate Amino Transf (AST/SGOT) 15 U/L Alanine Aminotransferase (ALT/SGPT) 18 U/L Total Bilirubin 0.1 MG/DL Sodium Level 143 MEQ/L Potassium Level 4.1 MEQ/L Chloride Level 109 MEQ/L Carbon Dioxide Level 28.8 MEQ/L Anion Gap 5 MEQ/L Estimat Glomerular Filtration Rate 31 ML/MIN Lipase 144 U/L Urine Color LIGHT-YELLOW Urine Turbidity CLEAR Urine pH 5.5 Urine Specific [place] 1.013 Urine Protein 30 mg/dL Urine Glucose (UA) NEG mg/dL Urine Ketones NEG mg/dL Urine Occult Blood MOD Urine Nitrite NEG Urine Bilirubin NEG Urine Urobilinogen LESS THAN 2.0 MG/DL Urine Leukocyte Esterase SMALL Urine RBC 61 /hpf Urine WBC 7 /hpf Urine Squamous Epithelial Cells <1 /hpf Urine Renal Epithelial Cells 1 /hpf Urine Mucus FEW /lpf Microscopic Urinalysis Comment CULT NOT INDICATED MDM Medical Decision Making Medical Screen Exam Complete: Yes Emergency Medical Condition: Yes Medical Record Reviewed: Yes Interpretation(s) Last Impressions Abdomen/Pelvis CT 05/23/172057 Signed Impressions: Service Date/Time: May 22:24 - CONCLUSION: 1. Bilateral hydronephrosis, slightly worse on the right since January 24. Interval placement of left-sided double-J stent with slight improvement in previous left hydronephrosis. Thickened left side bladder wall remains. 2. Abdomen enlarged uterus with thickened endometrium and endometrial fluid characteristic of reported history of endometrial carcinoma, similar to January 24. 3. Increase in size of left neck mass now measuring up to 8.1 x 5.2 cm compared with January 24. 4. Colonic diverticulosis without diverticulitis. Tayo Driscoll MD CBC & BMP Diagram 05/23/17 21:15 Total Protein 7.2, Albumin 3.4, Calcium Level 8.9, Alkaline Phosphatase 72, Aspartate Amino Transf (AST/SGOT) 15, Alanine Aminotransferase (ALT/SGPT) 18, Total Bilirubin 0.1 L Vital Signs Date Time Temp Pulse Resp B/P (MAP) Pulse Ox O2 Delivery O2 Flow Rate FiO2 05/24/17 01:53 05/23/17 23:44 96 16 135/76 (95) 97 Room Air 05/23/17 21:35 99 Room Air 05/23/17 20:51 18 05/23/17 20:46 98.2 98 18 170/92 (118) Differential Diagnosis Abdominal pain, pelvic mass, obstructive uropathy Narrative Course Specimens collected and sent for resulting CT abdomen and pelvis ordered Patient received bolus of normal saline morphine sulfate and Zofran with symptom relief Lab values resulted and pancytopenia is stable; patient noted to have some mild renal insufficiency that has increased since last creatinine. CT abdomen and pelvis shows increased mass and bulk of the tumor and chronic hydronephrosis but no bowel obstruction Patient is aware of lab results and imaging results in stable for outpatient management and close follow-up with her oncologist. Call placed to covering oncologist recommends patient keep appointment as scheduled with her specialist and pain management medications be provided as needed for her symptom relief. Diagnosis Primary Impression: Pelvic mass in female Additional Impressions: Bladder mass Obstructive uropathy Referrals: Ami Horn MD call for appointment Patient Instructions: General Instructions, Narcotic given in the ED Med/Other Pt SpecificInfo: No Change to Meds Scripts No Active Prescriptions or Reported Meds Disposition: DISCHARGE HOME Condition: Stable Meeta Smith MD May 24, 2017 01:43
== END 2017-05-24 02:07 | disposition home or self-care (01) ==
LOC: NEPC 20:40
DX: N13.9 Obstructive and reflux uropathy, unspecified (principal); R19.00 Intra-abdominal and pelvic swelling, mass and lump, unspecified site; N32.9 Bladder disorder, unspecified; N13.30 Unspecified hydronephrosis; R22.1 Localized swelling, mass and lump, neck; K57.30 Diverticulosis of large intestine without perforation or abscess without bleeding; C55 Malignant neoplasm of uterus, part unspecified; Z86.19 Personal history of other infectious and parasitic diseases; Z88.0 Allergy status to penicillin
CPT/HCPCS: 74176; 80053; 81001; 83690; 85025; 85610; 85730; 96374; 96375; 99285; J2270; J7030